=== PATIENT | male | born 1950 | race Caucasian/White ===

== ENCOUNTER → 2019-02-15 | Outpatient (CLI) | payer MEDICARE ==
[~2019-02-15] MED LIST: ASPI325 PO; Aldactone25 MG PO; Bactrim Ds Tab1 EACH PO; CARV25 PO; CLIN300 PO; CLOP75 PO; Cipro500 MG PO; Crestor40 MG PO; FURO100EL PO; HYDR1TAB94 PO; ISOMON60ER PO; LISI20 PO; LISI5 PO; METO50 PO; NAPR220 PO; NIFE30ER PO; NITR.4SL SL; Nicoderm Cq1 EAC1 TOP; ONE DAILY MEN'1 EAC1 PO; POTA10T PO; PRAV20 PO; Vsl#3 Capsule1 EACH PO; Zantac150 MG PO
== END ==
LOC: LAB SHORT 10:08 → LAB 10:08
DX: L03.032 Cellulitis of left toe (principal)
CPT/HCPCS: 87070; 87075; 87106; 87205

== ENCOUNTER 2019-03-12 07:30 | Day surgery (SDC) | payer MEDICARE ==
[~2019-03-12 07:30] MED LIST changes: -Aldactone25 MG PO; -Bactrim Ds Tab1 EACH PO; -CARV25 PO; -CLIN300 PO; -CLOP75 PO; -Crestor40 MG PO; -HYDR1TAB94 PO; -LISI5 PO; -NITR.4SL SL; -Nicoderm Cq1 EAC1 TOP; -ONE DAILY MEN'1 EAC1 PO; -Vsl#3 Capsule1 EACH PO
[2019-03-12] MEDS ORDERED: CLOP75 PO (18:39)
[2019-03-12] MEDS ORDERED: Aldactone25 MG PO (18:39)
[2019-03-12] MEDS ORDERED: Crestor40 MG PO (18:40)
[2019-03-12] MEDS ORDERED: LISI20 PO (18:41)
[2019-03-12] MEDS ORDERED: CARV25 PO (18:41)
[2019-03-12] MEDS ORDERED: NITR.4SL SL (18:42)
[2019-03-12] MEDS ORDERED: ONE DAILY MEN'1 EAC1 PO (18:42)
[2019-03-12] MEDS ORDERED: CLIN300 PO (18:42)
== END 2019-03-12 22:46 | disposition home or self-care (01) ==
LOC: WOUND 07:30
DX: S91.205A Unspecified open wound of left lesser toe(s) with damage to nail, initial encounter (principal); L03.032 Cellulitis of left toe; I73.9 Peripheral vascular disease, unspecified; F17.210 Nicotine dependence, cigarettes, uncomplicated; I48.0 Paroxysmal atrial fibrillation; E78.5 Hyperlipidemia, unspecified; J44.9 Chronic obstructive pulmonary disease, unspecified; Z95.0 Presence of cardiac pacemaker
CPT/HCPCS: G0463

== ENCOUNTER 2019-03-12 15:18 | Inpatient (IN) | payer MEDICARE ==
[~2019-03-12] VITALS: Ht 175.3 cm; Wt 84.0 kg
[2019-03-12 17:09] LABS: BASOPHILS ABSOLUTE AUTO 0.06 K/mm3 (0.00-0.23); BASOPHILS PERCENT AUTO 1 % (0-2); EOSINOPHILS ABSOLUTE AUTO 0.28 K/mm3 (0.00-0.68); EOSINOPHILS PERCENT AUTO 2 % (0-6); Hemoglobin 13.1 g/dL (13.5-17.5); IMMATURE GRAN PERCENT AUTO 1 % (0-1); LYMPHOCYTES ABSOLUTE AUTO 3.07 K/mm3 (0.84-5.20); LYMPHOCYTES PERCENT AUTO 24 % (21-46); MONOCYTES ABSOLUTE AUTO 1.37 K/mm3 (0.16-1.47); MONOCYTES PERCENT AUTO 11 % (4-13); Mean Corpuscular HGB Conc 33.6 g/dL (31.5-36.5); Mean Corpuscular Volume 89 fL (80-100); Mean Platelet Volume 8.8 fL (9.1-12.4); NEUTROPHILS ABSOLUTE AUTO 8.04 K/mm3 (1.96-9.15); NEUTROPHILS PERCENT AUTO 62 % (41-73); Platelet Count 309 K/mm3 (150-400); RDW Coefficient Variation 13.5 % (11.7-14.2); RDW Standard Deviation 44.2 fL (35.1-46.3); Red Blood Cell Count 4.37 M/mm3 (4.30-5.90); White Blood Cell Count 12.92 K/mm3 (4.00-11.30)
[2019-03-12 17:54] LABS: Albumin, Blood 3.8 g/dL (3.4-5.0); Bilirubin, Total 0.5 mg/dL (0.1-1.0); Bun/Creatinine Ratio 22.7 (12.0-20.0); Creatinine, Blood 1.41 mg/dL (0.60-1.20); Globulin, Blood 3.7 g/dL (2.2-4.0); Potassium, Blood 5.8 mmol/L (3.5-5.5); Total Protein, Blood 7.5 g/dL (6.4-8.2)
--- NOTE | 2019-03-12 18:00 | NUR ---
PT TO PCU 3 DIRECT ADMIT. TRANSFERED FROM WHEELCHAIR TO BED INDEPENDENTLY. C/O "05/28" LEFT FOOT PAIN. CURRENTLY NO ORDERS FOR PAIN MEDS. DR. GODFREY CALLED, ORDERS RECEIVED FOR PAIN MEDS. IV IN RIGHT HAND. JANICE NOTED TO LEFT FOOT, JANICE CDI.
[2019-03-12] MEDS ORDERED: CLOP75 PO (18:39)
[2019-03-12] MEDS ORDERED: Aldactone25 MG PO (18:39)
[2019-03-12] MEDS ORDERED: Crestor40 MG PO (18:40)
[2019-03-12] MEDS ORDERED: LISI20 PO (18:41)
[2019-03-12] MEDS ORDERED: CARV25 PO (18:41)
[2019-03-12] MEDS ORDERED: NITR.4SL SL (18:42)
[2019-03-12] MEDS ORDERED: ONE DAILY MEN'1 EAC1 PO (18:42)
[2019-03-12] MEDS ORDERED: CLIN300 PO (18:42)
--- NOTE | 2019-03-12 19:15 | NUR ---
SHIFT SUMMARY 1800 PT ARRIVED DIRECT ADMIT. ALERT AND ORIENTED X3. C/O "12/10" PAIN TO LEFT FOOT, MEDICATED WITH PRN PAIN MEDS. LUNG SOUNDS CLEAR, DIMINISHED BASES. NSR RATE 60s ON TELEMETRY. LEFT FOOT DRSG CDI. WEAKNESS TO BILATERAL FEET WITH LIMITED ROM. WILL CONTINUE TO MONITOR AND REPORT OFF TO SUPERVISOR RN.
--- NOTE | 2019-03-12 22:10 | NUR ---
ASSUMED CARE OF PATIENT AT [facility] 1909 DEBORAH Bales RN. PATIENT ALERT AND ORIENTED X4. PATIENT USES WALKER AT BASELINE; REPORTS FREQUENT FALLS AT HOME. PATIENT REPORTS FALLING ABOUT SIX WEEKS AGO; "BLISTER" LIKE SORE APPEARS ON FOOT "THEN GANGRENE". DRESSING REMOVED, PHOTOS TAKEN AND DRESSING APPLIED TO LEFT FOOT. PATIENT REPORTS PAIN 7/10 IN LEFT FOOT; AFTER GIVEN PO PAIN MEDICATION PATIENT REPORTS PAIN IS TOLERABLE. 911 EMERGENCY SERVICES DISPATCHER JENISE IN TO SEE PATIENT TWICE SINCE SHIFT CHANGE; NICOTINE PATCH, HOME MED AND FLUIDS ORDERED. SB/NSR ON TELE; OXYEN SATURATION ABOVE 90% ON ROOM AIR. PIV S/L. PATIENT CURRENTLY RESTING IN BED; CALL LIGHT IN REACH; BED IN LOWEST POSISTION; WILL CONTINUE TO MONITOR AND ASSESS UNTIL END OF SHIFT.
[2019-03-12 22:50] LABS: Bun/Creatinine Ratio 22.4 (12.0-20.0); Calcium, Blood 8.9 mg/dL (8.5-10.1); Creatinine, Blood 1.47 mg/dL (0.60-1.20)
[2019-03-13 04:16] LABS: BASOPHILS ABSOLUTE AUTO 0.04 K/mm3 (0.00-0.23); BASOPHILS PERCENT AUTO 0 % (0-2); EOSINOPHILS ABSOLUTE AUTO 0.33 K/mm3 (0.00-0.68); EOSINOPHILS PERCENT AUTO 4 % (0-6); Hematocrit 36.6 % (37.0-53.0); IMMATURE GRAN ABSOLUTE AUTO 0.06 K/mm3 (0.00-0.10); IMMATURE GRAN PERCENT AUTO 1 % (0-1); LYMPHOCYTES ABSOLUTE AUTO 3.19 K/mm3 (0.84-5.20); LYMPHOCYTES PERCENT AUTO 34 % (21-46); MONOCYTES ABSOLUTE AUTO 1.23 K/mm3 (0.16-1.47); MONOCYTES PERCENT AUTO 13 % (4-13); Mean Corpuscular HGB 29.7 pg (26.0-34.0); Mean Corpuscular HGB Conc 32.8 g/dL (31.5-36.5); Mean Corpuscular Volume 91 fL (80-100); Mean Platelet Volume 9.1 fL (9.1-12.4); NEUTROPHILS ABSOLUTE AUTO 4.54 K/mm3 (1.96-9.15); NEUTROPHILS PERCENT AUTO 48 % (41-73); Platelet Count 289 K/mm3 (150-400); RDW Coefficient Variation 13.6 % (11.7-14.2); Red Blood Cell Count 4.04 M/mm3 (4.30-5.90); White Blood Cell Count 9.39 K/mm3 (4.00-11.30)
[2019-03-13 04:31] LABS: Bun/Creatinine Ratio 22.5 (12.0-20.0); Calcium, Blood 8.8 mg/dL (8.5-10.1); Creatinine, Blood 1.42 mg/dL (0.60-1.20); Potassium, Blood 5.1 mmol/L (3.5-5.5)
--- NOTE | 2019-03-13 05:37 | NUR ---
ASSUMED CARE APPROXIMATELY 2129; PT A&O x4; PT PLEASANT AND COOPERATIVE W/ CARE; C/O SEVERE PAIN IN L FOOT; WOUND ON L SMALL TOE, SOLE AND HEEL OF FOOT DISCOLORED; PICTURES TAKEN REFER TO CHART; WOUND DRESSED W/ NON-ADHERENT PAD AND GAUZE BANDAGE ROLL; L LEG ELEVATED ON PILLOW AND PT MEDICATED PER ORDERS; PT ON RA AND O2 SATS >90; PT USES WALKER BASELINE; BED IN LOWEST POSITION; CALL LIGHT W/IN REACH; WILL CONTINUE TO MONITOR AND ASSESS UNTIL HAND OFF TO DAY SHIFT RN.
--- NOTE | 2019-03-13 08:30 | NUR ---
AM NOTE. ASSUMED CARE OF PT APROX 0700, PT IS A&Ox4 AND SBA W/FWW IN THE ROOM. PT WAS ADMITTED FOR LEFT FOOT INFECTION AND POSSIBLE REVASCULARIZATION OF THE LEFT FOOT/LEG. PT HAS NO EDEMA NOTED ON ASSESSMENT, PT IS IN NSR IN THE 60'S-70'S. L/S CLEAR T/O DIM IN THE BASES PT IS ON RA WITH O2 SATS >93%. BT PRESENT AND NORMOACTIVE, ABD IS SOFT AND NONTENDER TO PALP. PICTURES OF THE PT'S WOUND ARE IN THE CHART, PT'S PAIN IS POORLY CONTROLLED BUT PT IS REFUSING IV PAIN MEDICATIONS, PT EDUCATED ON PAIN CONTROLL AND HEALING, PT STATED HIS UNDERSTANDING. WILL CONTINUE TO MONITOR.
--- NOTE | 2019-03-13 17:58 | NUR ---
SHIFT SUMMARY. NO ACUTE CHANGES NOTED THIS SHIFT. PT'S VS STABLE. PT DENIES ANY CHEST PAIN/PRESSURE, N/V OR SOB. PT'S PAIN HAS BEEN POORLY CONTROLLED T/O SHIFT. PT HAS BEEN VOIDING IND IN THE URINAL AT THE BEDSIDE. PT IS TO HAVE PROCEDURE WITH DR. GODFREY TOMORROW, UNKNOWN TIME. PT HAS NOT HAD BM THIS SHIFT. CALL LIGHT IN REACH, BED IS LOCKED AND LOW WILL CONTINUE TO MONITOR UNTIL REPORT IS GIVEN TO ONCOMING RN.
--- NOTE | 2019-03-13 19:28 | NUR ---
OPENING NOTE RECEIVED REPORT FROM YUKI GARCES AND ASSUMED PT CARE. PT IS RESTING IN BED, WATCHING TELEVISION. C/O TENDERNESS AT IV SITE TO R HAND WHEN FLUSHED, DENIES PAIN WITH NS RUNNING AT 100 ML/HR. WILL CONTINUE TO MONITOR AND WILL CONTINUE PLAN OF CARE.
[2019-03-13 21:26] LABS: Vancomycin, Trough 20.4 ug/mL (5.0-10.0)
--- NOTE | 2019-03-14 06:10 | NUR ---
SHIFT SUMMARY PT HAS BEEN RESTLESS THROUGH SHIFT, C/O PAIN RATED 5-10 TO LEFT FOOT AND OCCASSIONALLY BACK PAIN. MEDICATED PER PRN ORDERS (SEE EMAR) WITH GOOD EFFECT. NS RUNNING TO NEW IV PLACED IN THE LFA (20G). OVERALL STATUS: UNCHANGED R/T TO CONTINUED FOOT PAIN AND PLAN FOR POSSIBLE INTERVENTION TODAY. NEW CONSULT ORDER FOR ORTHO RECEIVED, CALLED TO ANS SERVICE, AND NOTED IN ORDER. WILL PROVIDE BEDSIDE REPORT TO ONCOMING RN.
--- NOTE | 2019-03-14 08:27 | NUR ---
AM NOTE. ASSUMED CARE OF PT APROX 0700, PT IS A&Ox4 AND SBA AT BASELINE, CURRENTLY PT HAS WOUND ON LEFT FOOT THAT HE WAS ADMITTED FOR. PT IS TO HAVE A PROCEDURE WITH DR. GODFREY TODAY. PT IS TO HAVE NM 3 PHASE BONE SCAN ON 03/15 AT 1000 AND 1300. PT'S PAIN CONTROL STILL AN ISSUE BUT PT STATES HE FEELS BETTER TODAY. L/S CLEAR AND DIM IN THE BASES, PT IS ON RA WITH O2 SATS >92%. BT PRESENT AND NORMOACITVE, ABD IS SOFT AND NONTENDER TO PALP. CALL LIGHT IN REACH, WILL CONTINUE TO MONITOR.
--- NOTE | 2019-03-14 17:39 | NUR ---
PT BACK FROM JOB FORWARDER PT RETURNED FROM JOB FORWARDER AT 1730. PT IS SLEEPING BUT ROUSABLE. PT'S VS STABLE AT 116/71, HR 81, RR18, TEMP 96.7. O2 SAT AT 95% ON RA. PT HAS RIGHT GROIN ACCESS WITH ANGIO SEAL. SITE IS C/D/I, NO BLEEDING, SWELLING, OR HEMATOMA NOTED. PT'S LEFT LEG AND FOOT ARE PINK/RED AND WARM WITH GOOD PEDIAL PULSE. WILL CONTINUE TO MONITOR.
--- NOTE | 2019-03-14 17:42 | NUR ---
SHIFT SUMMARY. NO ACUTE NEGATIVE CHANGES NOTED THIS SHIFT. PT'S VS HAVE BEEN STABLE. PT HAD REVASCULARIZATION PROCEDURE AND HAS RETURNED TO THE ROOM. PT IS TO BE NPO AFTER MIDNNIGHT FOR SURGERY IN THE AM TO REMOVE THE 2 INFECTED TOES ON THE LEFT FOOT. PT DENNIES ANY CHEST PAIN/PRESSURE, N/V OR SOB AT THIS TIME. NO EVENTS NOTED ON TELE. WILL CONTINUE TO MONITOR UNTIL REPORT IS GIVEN TO ONCOMING RN.
--- NOTE | 2019-03-14 19:28 | NUR ---
PT UPDATE... PT IS TO HAVE SURGERY TOMORROW TO REMOVED THE TWO INFECTED TOES ON THE LEFT FOOT. THE BONE SCAN IS CANCLED D/T NOT NEEDING THE SCAN ANYMORE.
--- NOTE | 2019-03-14 19:45 | NUR ---
Pt lethartic upon initial assessment. Able to open eyes to command. Oriented only to person and , when asked for him to tell this RN where he is, pt states "i don't know". Pt breathing easy and unlabored. VSS. R femoral site assessed with offgoing day RN. No changes noted from day shift. Site soft, nontender, no drainage noted. angioseal wnl. At approx 1945 pt set off bed alarm and when this RN came to room, pt up in room ambulating. This RN promptly guided pt back to bed. R femoral site assessed. No changes noted. Pt educated on need to use call light. pt verbalized understanding. Zone alarms for the bed alarm placed on pt bed. See shift assessment for detailed assessment.
[2019-03-14 21:42] LABS: Vancomycin, Trough 16.4 ug/mL (5.0-10.0)
--- NOTE | 2019-03-15 01:30 | NUR ---
UPDATE By midnight, pt now alert and oriented, calling appropriately with call light. Pt no longer attempting to exit bed unattended. R femoral site remains wnl. No changes noted. VSS.
[2019-03-15 04:22] LABS: BASOPHILS ABSOLUTE AUTO 0.04 K/mm3 (0.00-0.23); BASOPHILS PERCENT AUTO 1 % (0-2); EOSINOPHILS ABSOLUTE AUTO 0.14 K/mm3 (0.00-0.68); EOSINOPHILS PERCENT AUTO 2 % (0-6); Hematocrit 34.2 % (37.0-53.0); Hemoglobin 11.2 g/dL (13.5-17.5); IMMATURE GRAN ABSOLUTE AUTO 0.04 K/mm3 (0.00-0.10); IMMATURE GRAN PERCENT AUTO 1 % (0-1); LYMPHOCYTES ABSOLUTE AUTO 1.76 K/mm3 (0.84-5.20); LYMPHOCYTES PERCENT AUTO 20 % (21-46); MONOCYTES ABSOLUTE AUTO 0.93 K/mm3 (0.16-1.47); MONOCYTES PERCENT AUTO 11 % (4-13); Mean Corpuscular HGB 29.4 pg (26.0-34.0); Mean Corpuscular HGB Conc 32.7 g/dL (31.5-36.5); Mean Corpuscular Volume 90 fL (80-100); Mean Platelet Volume 9.2 fL (9.1-12.4); NEUTROPHILS ABSOLUTE AUTO 5.78 K/mm3 (1.96-9.15); NEUTROPHILS PERCENT AUTO 66 % (41-73); Platelet Count 256 K/mm3 (150-400); RDW Standard Deviation 46.1 fL (35.1-46.3); Red Blood Cell Count 3.81 M/mm3 (4.30-5.90); White Blood Cell Count 8.69 K/mm3 (4.00-11.30)
[2019-03-15 04:44] LABS: Anion Gap 9 mmol/L (6-16); Blood Urea Nitrogen 19 mg/dL (8-24); Bun/Creatinine Ratio 19.1 (12.0-20.0); CO2, Blood 21 mmol/L (21-32); Calcium, Blood 8.3 mg/dL (8.5-10.1); Chloride, Blood 108 mmol/L (98-108); Creatinine, Blood 0.99 mg/dL (0.60-1.20); Glomerular Filtration Rate >60 (60-); Glucose, Blood 79 mg/dL (70-99); Potassium, Blood 5.1 mmol/L (3.5-5.5); Sodium, Blood 138 mmol/L (136-145)
--- NOTE | 2019-03-15 04:54 | NUR ---
Shift Summary VSS this shift. Disorientation from begining of shift cleared around midnight as documented in previous nurse notes. Pt currently alert and oriented, conversing appropriately with staff, using call light appropriately to make needs known. No acute declines noted this shift. No negative changes from initial shift assessment. Upon initial assessment, pt on 1.5L NC, currently maintaining o2 >95% on RA, breathing easy and unlabored. Pt denies SOB or WALKER. Pt denies chest pain or pressure. Pt does c/o severe BLE pain, particularly LLE. Medicated per emar. Repositioned and warm blanket provided for comfort. Pt currently sleeping and arrousable. R groin site unchanged from initial assessment, site wnl, non tender, angioseal CDI. Pt able to move all extremities independantly. MRI screening list completed with pt once initial lethargy cleared and pt exhibited proper orientation. MRI screening faxed to imaging. Pt voiding with urinal, flat time completed and pt has stood in room with no changes noted to groin site. Will continue to monitor and provide care per orders until day RN assumes care.
--- NOTE | 2019-03-15 07:27 | NUR ---
AM NOTE. ASSUMED CARE OF PT APROX 0700. PT IS A&Ox4. PT IS NPO FOR SURGERY TODAY FOR I&D AND POSSIBLE AMPUTATION OF LEFT TOES. PT'S RIGHT GROIN SITE IS C/D/I, NO SWELLING OR HEMATOMA NOTED. PT'S LEFT LEG IS PINK AND WARM AND SLIGHTLY PUFFY , PEDAL PULSE IS FAINT. PT'S RIGHT LEG IS PALE AND COOL TO TOUCH WITH VERY FAINT PEDAL PULSE. PT IS IN NSR IN THE 60'S-70'S. NO OTHER EDEMA NOTED. PT IS ON RA, L/S CLEAR T/O DIM IN THE BASES. BT PRESENT AND HYPOACTIVE, ABD IS SOFT AND NONTENDER TO PALP. VS STABLE. WILL CONTINUE TO MONITOR.
--- NOTE | 2019-03-15 09:03 | NUR ---
PT UPDATE... PT RETURNED FROM CT SCAN, PT REPORTING RADIATING CHEST PAIN FROM HIS STERNAL AREA TO HIS BACK. PT STATES THAT HE FEELS LIKE THIS IS "ANOTHER HEART ATTACK." PT IS ALSO C/O OF NAUSEA AND IS DIAPHORETIC. PROVIDER CALLED, EKG OBTAINED AND NITRO SL WAS GIVEN. PER PT CP WAS 10/10, AFTER FIRST NITRO PT STATES CP IS ALMOST GONE.
--- NOTE | 2019-03-15 17:35 | NUR ---
SHIFT SUMMARY. NO ACUTE CHANGES NOTED THIS SHIFT. PT WAS NPO AFTER MIDNIGHT FOR SURGERY TODAY, HOWEVER DUE TO THE PT'S EPISODE OF CHEST PAIN THE SURGERY WAS CANCLED. IT IS NOT KNOWN WHEN HE WILL GO TO THE OR AT THIS TIME. PT'S PAIN HAS BEEN BETTER CONTROLLED TODAY. PT DENIES ANY CHEST PAIN AFTER THE ONE DOSE OF NITRO THIS AM. PT'S VS HAVE BEEN STABLE ALL SHIFT. CALL LIGHT IN REACH, BED IS LOCKED AND LOW WILL CONITNUE TO MONITOR UNTIL REPORT IS GIVEN TO ONCOMING RN.
--- NOTE | 2019-03-15 21:30 | NUR ---
PT presents sitting in bed, eyes open. VSS, pt alert and oriented, conversing appropriately with staff. Pt answers all questions appropriately, pleasant and cooperative with staff. Breathing is easy and unlabored at rest. o2 saturations maintained >95% on RA. Pt expressing concerns and frustrations to this RN regarding surgery delay and pt expresses "I just wanted a doctor to come and tell me what is going on". This RN expressed sympathy to pt. Pt denying need for pain medication at this time, will continue to monitor pain and medicated per emar. See shift assessment for detailed systems assessment.
[2019-03-16 01:31] LABS: BASOPHILS ABSOLUTE AUTO 0.03 K/mm3 (0.00-0.23); BASOPHILS PERCENT AUTO 0 % (0-2); EOSINOPHILS ABSOLUTE AUTO 0.24 K/mm3 (0.00-0.68); EOSINOPHILS PERCENT AUTO 3 % (0-6); Hematocrit 32.3 % (37.0-53.0); Hemoglobin 10.4 g/dL (13.5-17.5); IMMATURE GRAN ABSOLUTE AUTO 0.03 K/mm3 (0.00-0.10); IMMATURE GRAN PERCENT AUTO 0 % (0-1); LYMPHOCYTES ABSOLUTE AUTO 1.78 K/mm3 (0.84-5.20); LYMPHOCYTES PERCENT AUTO 23 % (21-46); MONOCYTES ABSOLUTE AUTO 1.06 K/mm3 (0.16-1.47); MONOCYTES PERCENT AUTO 14 % (4-13); Mean Corpuscular HGB 29.3 pg (26.0-34.0); Mean Corpuscular HGB Conc 32.2 g/dL (31.5-36.5); Mean Corpuscular Volume 91 fL (80-100); Mean Platelet Volume 8.9 fL (9.1-12.4); NEUTROPHILS ABSOLUTE AUTO 4.54 K/mm3 (1.96-9.15); NEUTROPHILS PERCENT AUTO 59 % (41-73); Platelet Count 242 K/mm3 (150-400); RDW Standard Deviation 47.2 fL (35.1-46.3); Red Blood Cell Count 3.55 M/mm3 (4.30-5.90); White Blood Cell Count 7.68 K/mm3 (4.00-11.30)
[2019-03-16 01:45] LABS: Anion Gap 4 mmol/L (6-16); Blood Urea Nitrogen 19 mg/dL (8-24); Bun/Creatinine Ratio 19.9 (12.0-20.0); CO2, Blood 26 mmol/L (21-32); Calcium, Blood 8.3 mg/dL (8.5-10.1); Chloride, Blood 110 mmol/L (98-108); Creatinine, Blood 0.96 mg/dL (0.60-1.20); Glomerular Filtration Rate >60 (60-); Glucose, Blood 97 mg/dL (70-99); Potassium, Blood 4.7 mmol/L (3.5-5.5); Sodium, Blood 140 mmol/L (136-145)
--- NOTE | 2019-03-16 05:44 | NUR ---
Shift Summary Pt with no acute changes this shift. No acute concerns to note. Pain managed with [place] per emar x2 this shift, pt able to sleep and experienced relief with ordered dose and frequency. VSS. No events on tele. EKG completed per orders. Pt denies chest pain or pressure this shift, no nitro given this shift. Pt conversing appropriately, uses call light to make needs known, remains alert and oriented. No declines or changes to note from initial shift assessment. Pt has been NPO since midnight incase surgery is completed today (was cancelled yesterday d/t pt report of 10/10 sx chest pain). Pt voids in urinal at bedside independantly. Will continue to monitor and provide care per orders until report off to day rn.
[2019-03-16 10:16] LABS: Vancomycin, Trough 13.7 ug/mL (5.0-10.0)
--- NOTE | 2019-03-16 17:12 | NUR ---
SHIFT NOTE PT ALERT, CONVERSIVE T/O SHIFT. PT DID COMPLAIN OF PAIN ONCE TODAY, WHICH WAS REOLVED WITH NORCO PT STS THAT NORCO WORKS BETTER FOR HIS PAIN, PT TOLERATED PAIN MEDICATION WELL AND SLEPT FOR APPROX 2 HOURS POST ADMIN. PT MARYNER WAS IN TO SEE PT, PT'S STATUS WAS CHANGED TO SURG WITH TELE. POSSIBLE SURGICAL DEBRIDING OF LT FOOT ON MONDAY. PUNTURE WOUND FROM REVASCULARIZATION REMAINS SOFT, WNL, NO DRAINAGE, OPSITE REMAINS IN PLACE. VSS T/O SHIFT. NO DRAINAGE NOTED FROM WOUND TO LT TOES, PEDAL PULSES ARE FAINT IN LT FOOT, NO GROSS SWELLING NOTED BUT LT LEG IS MORE WARM THAN THE RIGHT. PT HAS BEEN CHANGED TO CARDIAC DIET, PT EATING AND TAKING IN FLUIDS WELL
--- NOTE | 2019-03-17 03:56 | NUR ---
PT CONVERTS TO ATRIAL FIBRILATION WITH RVR 0156: pt converts from NSR to afib at 135. This RN was notified by survey field technician and immediately went to pt room. Pt with labored breathing, appears in mild distress. pt reports complaints of SOB and chest pressure. Vitals taken and documented. MD Vidales notified of rhythm change and symptoms. EKG ordered and obtained per orders, 20mg IV dilt x1 ordered and given per emar with no effect, dilt gtt ordered (if IV push does not have effect, per MD vidales). additional IV placed by this RN to LW. Pt infusing dilt gtt at 10 mg/hr into LW IV. Pt complaint of nausea, MD Vidales called and notifed, again, orders for zofran obtained and given. Nausea resolved. BP stable on gtt at this time. Pt remains in Afib with rates in 110's per survey field technician. Pt states cardiac symptoms have resolved but complains of 10/10 leg and back pain consistant with chronic pain sx. This pt was then medicated for pain per emar. Will continue to monitor and provide care.
--- NOTE | 2019-03-17 04:40 | NUR ---
HR trending in 90's low 100's for 10 minutes. Pt remains Afib. Cardizem Gtt changed to 5mg/hr.
--- NOTE | 2019-03-17 05:11 | NUR ---
PT CONVERTED TO NSR AT 0454. cardizem gtt turned off and placd on standby at this time. Pt denies cardiac sx; no chest pain or pressure, denies SOB; RW SL at this time.
--- NOTE | 2019-03-17 06:35 | NUR ---
SHIFT SUMMARY Pt remains grossly stable this shift. Cardiac event as documented. Afib has since resolved, cardizem gtt off and currently not infusing. Pt with VSS, no changes to neuro status, remains alert and oriented. Pt continues to use call light to make needs known. C/o BLE pain this shift, medicated per emar and pain medication regiment is effective per pt report. Besides cardiac event, no changes from initial shift assessment. Will provide care and monitor until hand off to day RN.
--- NOTE | 2019-03-17 09:34 | NUR ---
PT ABLE TO HAVE BM
--- NOTE | 2019-03-17 10:13 | NUR ---
PT HAD BRIEF EPISODE OF AFIB THAT RANGED FROM 110s TO 138 POST AMBULATION TO BATHROOM, PT DID AMBULATE WITHOUT ADDITIONAL ASSISTANCE, BUT PT DID APPEAR TIRED AFTER AMBULATION. EPISODE OF AFIB RESOLVED WITHIN 10 MINUTES WITHOUT INTERVENTION, PT DENIES CP DURING EVENT. DR TRISTAN IS UPDATED, NEW ORDERS ARE PLACED, NS IS STOPPED AT TIME PER ORDER OF DR TRISTAN
--- NOTE | 2019-03-17 18:23 | NUR ---
SHIFT NOTE PT HAD EPISODE OF A-FIB THAT RANGED FROM 110-140 EARLIER TODAY POST AMBULATION, AFIB RESOLVED WITHOUT INTERVENTION AFTER APPROX [address] TRISTAN WAS CONSULTED, ORDERS OBTAINED TO STOP NS INFUSIION, AND GIVE MAGNESIUM AND LASIX WHICH WAS ADMINISTERED AND TOLERATED WELL. PT HAD ANOTHER EPISODE OF AFIB THAT RANGED WITHIN 90-110 AT THE END OF SHIFT, PT REMAINS A-SYMPTOMATIC AT THIS TIME, WILL CONTINUE TO MONITOR. PT OTHERWISE HAS C/O PAIN X2 TODAY WHICH WAS MANAGED WITH NORCO ADMINISTRATION. VSS T/O SHIFT WITH EXPECTION OF THE TWO EPISODES OF AFIB. ANTICIPATING PT GOING TO OR TOMORROW FOR DEBRIDING OF LT FOOT WOUND. PT ACUTE CHANGE TO FOOT WOUND, HAS REMAINED UNDRESSED, NO DRAINAGE OR ODOR NOTED
--- NOTE | 2019-03-17 23:12 | NUR ---
Pt converted from NSR to Afib at approx 2237 rates between 120-140; while in room with pt at approx 2250, pt complaint of "flutters" in his chest. Tele shows 5 beats of VTACH. Provider William called and notified of events. Lopressor 5mg IV x1 ordered if SBP>110. Pt with VSS. at approx 2310, pt convered back to NSR without medication administration. Medication held and not given per clinical judgement as pt is no longer in AFIB. will continue to monitor and provide care per orders.
--- NOTE | 2019-03-18 00:35 | NUR ---
UPDATE Pt continues to flip in and out of afib this shift. Also, pain has not been managed well. Pt appears painful at rest regardless of medication administration. Pt states "i think i'm just tired and can't tolerate my pain as well tonight". Pt denies need for alternative pain medication. Pt declines alternative pain management options. Will continue to monitor.
--- NOTE | 2019-03-18 01:20 | NUR ---
Pt NPO on 03/17/19 at 2358; plan is for operation of L toe wound on 03/18/19. 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
--- NOTE | 2019-03-18 05:20 | NUR ---
Shift Summary Pt with no acute declines to note overnight. Pt continues to have Afib on and off. Currently pt is in afib at 113, resting in bed with eyes open. Pain has been a continual complaint this shift. Medicated per orders with little relief. Will pass this change on to day RN. Pt with VSS, no changes to mentation, remains on RA and denies SOB. Uses urinal at bedside for voids independantly. ABX infused per orders. Pt NPO at this time in preparation for operation today. Will continue to montior .
--- NOTE | 2019-03-18 13:45 | NUR ---
PT TO DAY SURGERY WITH BRITNI GARCES
--- NOTE | 2019-03-18 16:02 | NUR ---
History, Chart, Medications and Allergies reviewed before start of procedure. Patient confirms NPO status and agrees with scheduled surgery.
--- NOTE | 2019-03-18 18:09 | NUR ---
SHIFT NOTE PT POOR MODERATELY CONTROLLED PAIN T/O DAY TO LT FOOT, PT TREATED WITH NORCO THIS AM THAT DID NOT HAVE A GREAT IMPACT ON PAIN, PT WAS ALSO TREATED WITH 100MG FENTANYL IVP PRIOR TO LEAVING WITH DAY SURGERY TODAY AROUND 1545. 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 PER SOFÍA PT HAS BEEN ANXIOUS AND COMPLAINING OF 10/10 BURNING PAIN TO LT FOOT WHILE IN RECOVERY THAT HAS NOT BEEN ABLE TO BE MANAGED WITH REPEATED DOSES OF FENTANYL WHILE IN PACU. T/O DAY PT DID HAVE 2 EPISODES OF AFIB THAT RANGED FROM 90s-110s, DENIES CP OR SOB T/O THE DAY. PT AMBULATED TO BATHROOM FOR BM WITH SLOW STEADY GAIT WITH HIS WALKER TO HAVE A BM. NO ACUTE CHANGES IN WOUND TO LT FOOT PRIOR TO LEAVING FOR OR TODAY.
--- NOTE | 2019-03-18 18:09 | NUR ---
RECIEVED REPORT FROM SOFÍA GARCES IN PACU, PT WILL RETURN SHORTLY FROM PACU
[2019-03-19 04:13] LABS: BASOPHILS ABSOLUTE AUTO 0.01 K/mm3 (0.00-0.23); BASOPHILS PERCENT AUTO 0 % (0-2); EOSINOPHILS PERCENT AUTO 0 % (0-6); Hematocrit 32.6 % (37.0-53.0); Hemoglobin 10.8 g/dL (13.5-17.5); IMMATURE GRAN ABSOLUTE AUTO 0.04 K/mm3 (0.00-0.10); IMMATURE GRAN PERCENT AUTO 1 % (0-1); LYMPHOCYTES ABSOLUTE AUTO 0.97 K/mm3 (0.84-5.20); LYMPHOCYTES PERCENT AUTO 14 % (21-46); MONOCYTES ABSOLUTE AUTO 0.28 K/mm3 (0.16-1.47); MONOCYTES PERCENT AUTO 4 % (4-13); Mean Corpuscular HGB 29.3 pg (26.0-34.0); Mean Corpuscular HGB Conc 33.1 g/dL (31.5-36.5); Mean Corpuscular Volume 89 fL (80-100); Mean Platelet Volume 9.4 fL (9.1-12.4); NEUTROPHILS ABSOLUTE AUTO 5.48 K/mm3 (1.96-9.15); NEUTROPHILS PERCENT AUTO 81 % (41-73); Platelet Count 308 K/mm3 (150-400); RDW Standard Deviation 45.6 fL (35.1-46.3); Red Blood Cell Count 3.68 M/mm3 (4.30-5.90); White Blood Cell Count 6.78 K/mm3 (4.00-11.30)
[2019-03-19 04:32] LABS: Anion Gap 6 mmol/L (6-16); Blood Urea Nitrogen 16 mg/dL (8-24); Bun/Creatinine Ratio 19.3 (12.0-20.0); CO2, Blood 26 mmol/L (21-32); Calcium, Blood 8.2 mg/dL (8.5-10.1); Chloride, Blood 106 mmol/L (98-108); Creatinine, Blood 0.83 mg/dL (0.60-1.20); Glomerular Filtration Rate >60 (60-); Glucose, Blood 183 mg/dL (70-99); Magnesium, Blood 1.6 mg/dL (1.6-2.4); Potassium, Blood 3.9 mmol/L (3.5-5.5); Sodium, Blood 138 mmol/L (136-145)
--- NOTE | 2019-03-19 06:43 | NUR ---
ASSUMED CARE APPROXIMATELY 1900; PT A&O X4; PT C/O UNCONTROLLED PAIN AFTER SURGERY; PT GIVEN 50MCG FENTANYL @ 2141; PT STATED HE COULD FEEL IT STARTING TO WORK; EXPRESSED CONCERNS OF IT WEARING OFF TOO QUICKLY; NORCO GIVEN PER EMAR AT 6; NORCO ADMINISTER AGAIN @ 0238; PT EDUCATED ON NEED TO STAY UNDER 4 G OF [place] IN 24HRS; PT EXPRESSED UNDERSTANDING; PT STATED NORCO WORKED LONGER AND DECLINED FENTANYL; PT CONVERSING EASILY W/ THIS NURSE AND SMILING; PT USES URINAL IN BED; URINE DARK IN COLOR; PT ENCOURAGED TO DRINK FLUIDS TODAY; PT APPROPRIATE W/ CALLS; PT AT EASE TO KNOW TIME FRAME OF NEXT PAIN MEDICATION AND PERAMETERS; CALL LIGHT IN REACH; BED IN LOWEST POSITION; WILL CONTINUE TO MONITOR AND ASSESS UNTIL HAND OFF TO DAY SHIFT RN.
--- NOTE | 2019-03-19 19:56 | NUR ---
REPORT GIVEN TO MACHO RN. PT STATES "MUCH BETTER" PAIN CONTROL WITH 1 NORCO EVERY 3 HOURS. VSS. STILL WITH EPISODES OF AFIB WITH EXERTION WHICH HAS BEEN PT'S NORM SINCE ADMISSION, METOPROLOL PO STARTED TODAY. PT NOW MED/SURG, NO TELE STATUS, MONITORED PT ON TELE SINCE STARTING METOPROLOL, NO CHANGES OR NEW EVENTS 6 HOURS POST ADMINISTRATION SO TELE DC'D. DR BYERS IN TO SEE PT THIS AFTERNOON, STATES FOOT "LOOKS GREAT", WILL DC DRAIN TOMORROW AND EXPECTS THAT PT COULD DC HOME FROM HIS STAND POINT. PT ALSO SWITCHED TO ALL PO MEDS AND DR CLARKE STATED OK TO DC IV. NO OTHER ACUTE CHANGES THIS SHIFT.
--- NOTE | 2019-03-19 19:59 | NUR ---
PT RESTING COMFORTABLY WITH LEFT FOOT CHAVA WRAP DRESSING DRY AND INTACT WITH SITE ELEVATED ON TWO PILLOWS
--- NOTE | 2019-03-19 23:37 | NUR ---
PT RESTING COMFORTABLY, VOIDING CLEAR YELLOW FLUID VIA URINAL, VITAL SIGNS STABLE.
--- NOTE | 2019-03-20 04:09 | NUR ---
SHIFT SUMMARY: 68 Y/O MALE RESTED COMFORTABLY ALL SHIFT, OCCASIONALY C/O LEFT FOOT ACHE RATED 6/10 WITH NORCO 5/325MG PO GIVEN WITH RELIEF FELT, LEFT FOOT CHAVA WRAP DRESSING DRY AND INTACT, EAGER FOR POSSIBLE DISCHARGE HOME TODAY, BED LOW POSITION WITH CALL LIGHT AT SIDE.
[2019-03-20] MEDS ORDERED: HYDR1TAB94 PO (12:28)
[2019-03-20] MEDS ORDERED: Vsl#3 Capsule1 EACH PO (12:29)
[2019-03-20] MEDS ORDERED: METO50 PO (12:30)
[2019-03-20] MEDS ORDERED: Nicoderm Cq1 EAC1 TOP (12:32)
[2019-03-20] MEDS ORDERED: Bactrim Ds Tab1 EACH PO (12:33)
[2019-03-20] MEDS ORDERED: LISI5 PO (12:34)
--- NOTE | 2019-03-20 13:38 | NUR ---
DISCHARGE PT IS EXCITED FOR D/C. DR BYERS IN FOR DRSG CHANGE PRIOR TO D/C. LATE NEW MED OF [place]ACE VERBALLY EXPLAINED TO PT WELL CALLED IN TO [facility]. CRAWLEY TO CALL PT'S CELL PHONE TO LEAVE MESSAGE. DRSG SUPPLIES SENT WITH PT.
== END 2019-03-20 13:59 | disposition home or self-care (01) | DRG 504 ==
LOC: ER 15:18 → PCU 15:19
PROVIDERS: Hospitalist; Internal Medicine; Nurse Practitioner Acute Care; Physician Assistant; ADMIT Radiology Diagnostic Radiology
PROC: 047H3DZ Dilation of Right External Iliac Artery with Intraluminal Device, Percutaneous Approach (ICD-10-PCS; principal; 2019-03-14)
PROC: 047L3DZ Dilation of Left Femoral Artery with Intraluminal Device, Percutaneous Approach (ICD-10-PCS; 2019-03-14)
PROC: 047L3Z1 Dilation of Left Femoral Artery using Drug-Coated Balloon, Percutaneous Approach (ICD-10-PCS; 2019-03-14)
PROC: B41D1ZZ Fluoroscopy of Aorta and Bilateral Lower Extremity Arteries using Low Osmolar Contrast (ICD-10-PCS; 2019-03-14)
PROC: 0Y6W0Z1 Detachment at Left 4th Toe, High, Open Approach (ICD-10-PCS; 2019-03-18)
PROC: 0Y6Y0Z1 Detachment at Left 5th Toe, High, Open Approach (ICD-10-PCS; 2019-03-18)
DX: M86.9 Osteomyelitis, unspecified (principal); N17.9 Acute kidney failure, unspecified; L03.116 Cellulitis of left lower limb; I50.22 Chronic systolic (congestive) heart failure; L97.524 Non-pressure chronic ulcer of other part of left foot with necrosis of bone; I25.10 Atherosclerotic heart disease of native coronary artery without angina pectoris; Z95.5 Presence of coronary angioplasty implant and graft; E78.5 Hyperlipidemia, unspecified; F17.210 Nicotine dependence, cigarettes, uncomplicated; I73.9 Peripheral vascular disease, unspecified; K21.9 Gastro-esophageal reflux disease without esophagitis; H54.62 Unqualified visual loss, left eye, normal vision right eye; N18.3 Chronic kidney disease, stage 3 (moderate); I12.9 Hypertensive chronic kidney disease with stage 1 through stage 4 chronic kidney disease, or unspecified chronic kidney disease; I48.0 Paroxysmal atrial fibrillation; Z79.82 Long term (current) use of aspirin; E78.00 Pure hypercholesterolemia, unspecified
CPT/HCPCS: 36415; 37221; 37227; 73620; 73701; 75625; 75716; 75774; 80048; 80053; 80202; 83605; 83735; 84484; 85025; 85347; 87040; 87070; 87075; 87106; 87205; 88305; 88311; 93005; 93010; 99152; 99153; A9270-GY; C1724; C1725; C1760; C1769; C1874; C1876; C1884; C1887; C1894; C2623; J0696; J1100; J1644; J1940; J2250; J2370; J2405; J2704; J3010; J3370; J3475; J7030; J7040; J7050; J7120; Q9967

== ENCOUNTER 2020-12-21 20:48 | Inpatient (IN) | payer MEDICARE ==
[~2020-12-21] VITALS: Ht 175.3 cm; Wt 86.2 kg
[~2020-12-21 20:48] MED LIST changes: -ASPI325 PO; +Aldactone25 MG PO; +Bactrim Ds Tab1 EACH PO; +CARV25 PO; +CLIN300 PO; +HYDR1TAB94 PO; +LISI5 PO; +NITR.4SL SL; +Nicoderm Cq1 EAC1 TOP; +ONE DAILY MEN'1 EAC1 PO; +Vsl#3 Capsule1 EACH PO
[2020-12-21] MEDS ORDERED: CLOP75 PO (21:17)
[2020-12-21] MEDS ORDERED: METO100ER PO (21:18)
[2020-12-21] MEDS ORDERED: Crestor40 MG PO (21:19)
[2020-12-21 21:20] LABS: Calcium, Ionized (POC) 1.17 mmol/L (1.10-1.46); Chloride (POC) 104 mmol/L (98-108); Creatinine (POC) 1.1 mg/dL (0.8-1.3); Glucose (ISTAT POC) 133 mg/dL (70-99); Hemoglobin (POC) 16.7 g/dL (13.5-17.5); Potassium (POC) 3.6 mmol/L (3.5-5.5); Sodium (POC) 141 mmol/L (135-148); Total CO2 (POC) 25 mmol/L (21-32)
[2020-12-21 21:26] LABS: BASOPHILS ABSOLUTE AUTO 0.04 K/mm3 (0.00-0.23); BASOPHILS PERCENT AUTO 0 % (0-2); EOSINOPHILS ABSOLUTE AUTO 0.13 K/mm3 (0.00-0.68); EOSINOPHILS PERCENT AUTO 2 % (0-6); Hemoglobin 15.3 g/dL (13.5-17.5); IMMATURE GRAN ABSOLUTE AUTO 0.03 K/mm3 (0.00-0.10); IMMATURE GRAN PERCENT AUTO 0 % (0-1); LYMPHOCYTES ABSOLUTE AUTO 3.43 K/mm3 (0.84-5.20); LYMPHOCYTES PERCENT AUTO 39 % (21-46); MONOCYTES ABSOLUTE AUTO 1.21 K/mm3 (0.16-1.47); MONOCYTES PERCENT AUTO 14 % (4-13); Mean Corpuscular HGB 26.1 pg (26.0-34.0); Mean Corpuscular HGB Conc 31.9 g/dL (31.5-36.5); Mean Corpuscular Volume 82 fL (80-100); Mean Platelet Volume 9.9 fL (9.1-12.4); NEUTROPHILS ABSOLUTE AUTO 4.07 K/mm3 (1.96-9.15); NEUTROPHILS PERCENT AUTO 46 % (41-73); Platelet Count 236 K/mm3 (150-400); RDW Coefficient Variation 18.4 % (11.7-14.2); RDW Standard Deviation 51.7 fL (35.1-46.3); Red Blood Cell Count 5.86 M/mm3 (4.30-5.90); White Blood Cell Count 8.91 K/mm3 (4.00-11.30)
[2020-12-21 21:48] LABS: Alanine Aminotransfer (ALT/SGP 20 U/L (12-78); Albumin, Blood 3.8 g/dL (3.4-5.0); Albumin/Globulin Ratio 1.1 (0.8-1.8); Alk Phos 75 U/L (50-136); Anion Gap 6 mmol/L (6-16); Aspartate Aminotrans (AST/SGOT 19 U/L (12-37); Bilirubin, Total 0.4 mg/dL (0.1-1.0); Blood Urea Nitrogen 19 mg/dL (8-24); Bun/Creatinine Ratio 17.6 (12.0-20.0); CO2, Blood 27 mmol/L (21-32); Calcium, Blood 9.5 mg/dL (8.5-10.1); Chloride, Blood 107 mmol/L (98-108); Creatinine, Blood 1.08 mg/dL (0.60-1.20); Globulin, Blood 3.4 g/dL (2.2-4.0); Glomerular Filtration Rate >60 (60-); Glucose, Blood 133 mg/dL (70-99); Potassium, Blood 3.8 mmol/L (3.5-5.5); Sodium, Blood 140 mmol/L (136-145); Total Protein, Blood 7.2 g/dL (6.4-8.2); Troponin I 0.066 ng/mL (0.000-0.040)
[2020-12-21] MEDS ORDERED: ASPI325EC PO (22:06)
[2020-12-22 04:15] LABS: BASOPHILS ABSOLUTE AUTO 0.03 K/mm3 (0.00-0.23); BASOPHILS PERCENT AUTO 0 % (0-2); EOSINOPHILS ABSOLUTE AUTO 0.15 K/mm3 (0.00-0.68); EOSINOPHILS PERCENT AUTO 2 % (0-6); Hematocrit 45.9 % (37.0-53.0); Hemoglobin 14.9 g/dL (13.5-17.5); IMMATURE GRAN ABSOLUTE AUTO 0.03 K/mm3 (0.00-0.10); IMMATURE GRAN PERCENT AUTO 0 % (0-1); LYMPHOCYTES ABSOLUTE AUTO 2.73 K/mm3 (0.84-5.20); LYMPHOCYTES PERCENT AUTO 31 % (21-46); MONOCYTES ABSOLUTE AUTO 1.22 K/mm3 (0.16-1.47); MONOCYTES PERCENT AUTO 14 % (4-13); Mean Corpuscular HGB 26.4 pg (26.0-34.0); Mean Corpuscular HGB Conc 32.5 g/dL (31.5-36.5); Mean Corpuscular Volume 81 fL (80-100); Mean Platelet Volume 10.2 fL (9.1-12.4); NEUTROPHILS ABSOLUTE AUTO 4.56 K/mm3 (1.96-9.15); NEUTROPHILS PERCENT AUTO 52 % (41-73); Platelet Count 223 K/mm3 (150-400); RDW Coefficient Variation 18.1 % (11.7-14.2); RDW Standard Deviation 51.2 fL (35.1-46.3); Red Blood Cell Count 5.64 M/mm3 (4.30-5.90); White Blood Cell Count 8.72 K/mm3 (4.00-11.30)
[2020-12-22 04:41] LABS: Troponin I 0.279 ng/mL (0.000-0.040)
[2020-12-22 04:45] LABS: Alanine Aminotransfer (ALT/SGP 20 U/L (12-78); Albumin, Blood 3.5 g/dL (3.4-5.0); Alk Phos 69 U/L (50-136); Anion Gap 5 mmol/L (6-16); Aspartate Aminotrans (AST/SGOT 22 U/L (12-37); Bilirubin, Total 0.4 mg/dL (0.1-1.0); Blood Urea Nitrogen 19 mg/dL (8-24); Bun/Creatinine Ratio 17.8 (12.0-20.0); CO2, Blood 25 mmol/L (21-32); Calcium, Blood 8.8 mg/dL (8.5-10.1); Chloride, Blood 110 mmol/L (98-108); Creatinine, Blood 1.07 mg/dL (0.60-1.20); Globulin, Blood 3.4 g/dL (2.2-4.0); Glomerular Filtration Rate >60 (60-); Glucose, Blood 120 mg/dL (70-99); Potassium, Blood 4.5 mmol/L (3.5-5.5); Sodium, Blood 140 mmol/L (136-145); Total Protein, Blood 6.9 g/dL (6.4-8.2)
--- NOTE | 2020-12-22 06:32 | NUR ---
SHIFT SUMMARY PT WAS ADMITTED TO PCU, PLAN OF CARE ESTABLISHED AND ORDERS INITIATED. PT STATES "I'M FEELING A LITTLE BETTER" BUT C/O EPIGASTRIC PAIN SINCE RECEIVING 2 SHOCKS FROM [employer] AT HOME. TELE SHOWS AFIB, CONTROLLED RATE AT REST IN THE 60'S TO LOW 100'S. AMIODARONE RUNNING AT 1 MG/MIN AND HEPARIN AT 13 U/KG/HR. VSS, SEE ASSESSMENT FOR DETAILS. PT IS NPO FOR POSSIBLE ANGIO TODAY, CARDIOLOGY CONSULT HAS BEEN CALLED IN TO ANSWERING SERVICE. WILL PROVIDE BEDSIDE REPORT TO ONCOMING SHIFT.
--- NOTE | 2020-12-22 09:25 | NUR ---
UPDATE PHYSICIAN VERBAL ORDER FOR PT TO HAVE BREAKFAST TRAY AT THIS TIME AND TO BE NPO AFTER BREAKFAST.
[2020-12-22 11:37] LABS: SARS-Cov-2 (COVID-19) PCR, MMC NEGATIVE (NEGATIVE)
[2020-12-22 11:55] LABS: Troponin I 0.122 ng/mL (0.000-0.040)
--- NOTE | 2020-12-22 18:09 | NUR ---
SHIFT SUMMARY PT ALERT AND ORIENTED X 4. HR STABLE. BP STABLE. PT ABLE TO TURN SELF IN BED NEEDED. PT REPORTS SEVERE CHRONIC BACK PAIN. REFUSING MEDICATIONS AND HEAT THERAPY AT THIS TIME. OXYGEN SATURATION MAINTAINED ABOVE 92% ON RA. AMIO AND HEPARIN GTT. SEE EMAR. NO CP. PLAN FOR PT TO BE NPO AFTER MIDNIGHT. COVID SWAB DONE FOR POSSIBLE PROCEDURE IN AM. WILL CONT TO MONITOR UNTIL REPORT GIVEN TO NIGHTSHIFT RN.
[2020-12-23 07:15] LABS: BASOPHILS ABSOLUTE AUTO 0.05 K/mm3 (0.00-0.23); BASOPHILS PERCENT AUTO 1 % (0-2); EOSINOPHILS ABSOLUTE AUTO 0.19 K/mm3 (0.00-0.68); EOSINOPHILS PERCENT AUTO 2 % (0-6); Hematocrit 45.8 % (37.0-53.0); Hemoglobin 14.7 g/dL (13.5-17.5); IMMATURE GRAN ABSOLUTE AUTO 0.03 K/mm3 (0.00-0.10); IMMATURE GRAN PERCENT AUTO 0 % (0-1); LYMPHOCYTES ABSOLUTE AUTO 2.78 K/mm3 (0.84-5.20); LYMPHOCYTES PERCENT AUTO 28 % (21-46); MONOCYTES ABSOLUTE AUTO 1.18 K/mm3 (0.16-1.47); MONOCYTES PERCENT AUTO 12 % (4-13); Mean Corpuscular HGB 26.4 pg (26.0-34.0); Mean Corpuscular HGB Conc 32.1 g/dL (31.5-36.5); Mean Corpuscular Volume 82 fL (80-100); Mean Platelet Volume 10.2 fL (9.1-12.4); NEUTROPHILS ABSOLUTE AUTO 5.64 K/mm3 (1.96-9.15); NEUTROPHILS PERCENT AUTO 57 % (41-73); Platelet Count 213 K/mm3 (150-400); RDW Coefficient Variation 18.6 % (11.7-14.2); RDW Standard Deviation 53.1 fL (35.1-46.3); Red Blood Cell Count 5.56 M/mm3 (4.30-5.90); White Blood Cell Count 9.87 K/mm3 (4.00-11.30)
[2020-12-23 07:38] LABS: Anion Gap 6 mmol/L (6-16); Blood Urea Nitrogen 21 mg/dL (8-24); Bun/Creatinine Ratio 19.3 (12.0-20.0); CO2, Blood 21 mmol/L (21-32); Chloride, Blood 112 mmol/L (98-108); Creatinine, Blood 1.09 mg/dL (0.60-1.20); Glomerular Filtration Rate >60 (60-); Glucose, Blood 104 mg/dL (70-99); Potassium, Blood 4.3 mmol/L (3.5-5.5); Sodium, Blood 139 mmol/L (136-145)
--- NOTE | 2020-12-23 17:46 | NUR ---
SHIFT SUMMARY; ASSUMED CARE AT 0700, REPORT FROM LORENA. TAKEN TO BURGL[facility] ALARM INSTALLER AT 0800 FOR ANGIO. RETURNED WITH RIGHT RADIAL TR BAND AND RIGHT GROIN ANGIOSEAL. REMAINED FLAT X4 HOURS FOR GROIN SITE. ARM BOARD IN PLACE AT RADIAL SITE. TR BAND REMOVED AFTER MONITORING, TEGADERM IN PLACE. NO BLEEDING, SWELLING OR REDNESS. RADIAL PULSE STRONG, MOVES ALL RIGHT FINGERS WITHOUT DIFFICULTY. CAP REFILL <3. RIGHT GROIN NON SWOLLEN, NO HEMATOMA OR SIGNS OF BLEEDING. HEPARIN DRIP DC'D BY [facility] PER ORDERS. VSS, A/A/OX4, REPOSITIONS SELF IN BED, NS INFUSING AT 100ML/HR. WILL CONTINUE TO MONITOR AND TREAT UNTIL CHANGE OF SHIFT.
--- NOTE | 2020-12-24 04:41 | NUR ---
PATIENT ALERT AND ORIENTATED, ABLE TO MAKE NEEDS KNOWN, USES CALL LIGHT APPROPRIATELY, CALL LIGHT WITHIN REACH, C/O PAIN X 2 THROUGHOUT SHIFT 01/26 LOWER BACK R/T CHRONIC PAIN FROM BACK SURGERY, REPOSITIONING AND FENTANYL 50MCG IVP GIVEN WITH GOOD RELIEF REPORTED. PATIENT IS A STAND BY ASSIST USES URINAL AT THE BEDSIDE.
[2020-12-24] MEDS ORDERED: METO50ER PO (11:41)
[2020-12-24] MEDS ORDERED: AMIODARONE HCL400 M2 PO (11:45)
[2020-12-24] MEDS ORDERED: LISI5 PO (11:46)
[2020-12-24] MEDS ORDERED: WARF5 PO (11:48)
[2020-12-24] MEDS ORDERED: ELIQUIS5 M2 PO (12:56)
[2020-12-24 13:06] LABS: International Normalized Ratio 1.16; Prothrombin Time Results 12.4 Sec (9.7-11.5)
== END 2020-12-24 14:50 | disposition home or self-care (01) | DRG 247 ==
LOC: ER 20:48 → PCU 21:14 → ICUW 21:14 → PCU 22:42 → ICUW 23:07 → PCU 12-22 00:35
PROVIDERS: Family Medicine; Internal Medicine; Physician Assistant; ADMIT Internal Medicine Cardiovascular Disease
PROC: 027135Z Dilation of Coronary Artery, Two Arteries with Two Drug-eluting Intraluminal Devices, Percutaneous Approach (ICD-10-PCS; principal; 2020-12-21)
PROC: B2111ZZ Fluoroscopy of Multiple Coronary Arteries using Low Osmolar Contrast (ICD-10-PCS; 2020-12-21)
DX: I21.4 Non-ST elevation (NSTEMI) myocardial infarction (principal); T82.855A Stenosis of coronary artery stent, initial encounter; I48.20 Chronic atrial fibrillation, unspecified; I50.20 Unspecified systolic (congestive) heart failure; I47.2 Ventricular tachycardia; E78.5 Hyperlipidemia, unspecified; I25.10 Atherosclerotic heart disease of native coronary artery without angina pectoris; F17.210 Nicotine dependence, cigarettes, uncomplicated; I25.2 Old myocardial infarction; Z79.82 Long term (current) use of aspirin; Z79.899 Other long term (current) drug therapy; I25.5 Ischemic cardiomyopathy; I73.9 Peripheral vascular disease, unspecified; Z79.84 Long term (current) use of oral hypoglycemic drugs
CPT/HCPCS: 36415; 71045; 76937; 80047; 80048; 80053; 82550; 83690; 83735; 83880; 84484; 85014; 85025; 85347; 85610; 85730; 92978; 93005; 93010; 93306; 93454; 93571; 96374; 96375; 96376; 99152; 99153; 99285-25; A9270; C1725; C1753; C1760; C1769; C1874; C1887; C1894; C9600; G0378; J0282; J1644; J2250; J2405; J3010; J7030; J7040; J7050; J7060; Q9967; U0004

== ENCOUNTER 2022-02-08 09:56 | Inpatient (IN) | payer MEDICARE ==
[~2022-02-08] VITALS: Ht 175.3 cm; Wt 89.2 kg
[~2022-02-08 09:56] MED LIST changes: +AMIODARONE HCL400 M2 PO; +ASPI325EC PO; +CLOP75 PO; +Crestor40 MG PO; +ELIQUIS5 M2 PO; +METO100ER PO; +METO50ER PO; +WARF5 PO
[2022-02-08 10:38] LABS: BASOPHILS ABSOLUTE AUTO 0.06 K/mm3 (0.00-0.23); BASOPHILS PERCENT AUTO 1 % (0-2); EOSINOPHILS ABSOLUTE AUTO 0.21 K/mm3 (0.00-0.68); EOSINOPHILS PERCENT AUTO 2 % (0-6); Hematocrit 32.2 % (37.0-53.0); Hemoglobin 8.3 g/dL (13.5-17.5); IMMATURE GRAN ABSOLUTE AUTO 0.05 K/mm3 (0.00-0.10); IMMATURE GRAN PERCENT AUTO 1 % (0-1); LYMPHOCYTES ABSOLUTE AUTO 1.74 K/mm3 (0.84-5.20); LYMPHOCYTES PERCENT AUTO 16 % (21-46); MONOCYTES ABSOLUTE AUTO 1.46 K/mm3 (0.16-1.47); MONOCYTES PERCENT AUTO 14 % (4-13); Mean Corpuscular HGB 16.8 pg (26.0-34.0); Mean Corpuscular HGB Conc 25.8 g/dL (31.5-36.5); Mean Corpuscular Volume 65 fL (80-100); Mean Platelet Volume 9.1 fL (9.1-12.4); NEUTROPHILS PERCENT AUTO 67 % (41-73); NRBC ABSOLUTE 0.04 K/mm3 (0.00-0.02); NRBC Auto 0.4 /100 WBC (0.0-0.2); Platelet Count 550 K/mm3 (150-400); RDW Coefficient Variation 22.8 % (11.7-14.2); RDW Standard Deviation 50.7 fL (35.1-46.3); Red Blood Cell Count 4.93 M/mm3 (4.30-5.90); White Blood Cell Count 10.72 K/mm3 (4.00-11.30)
[2022-02-08 11:00] LABS: Albumin, Blood 3.1 g/dL (3.4-5.0); Albumin/Globulin Ratio 0.9 (0.8-1.8); Bilirubin, Total 0.6 mg/dL (0.1-1.0); Bun/Creatinine Ratio 18.3 (12.0-20.0); Calcium, Blood 8.2 mg/dL (8.5-10.1); Creatinine, Blood 0.87 mg/dL (0.60-1.20); Globulin, Blood 3.6 g/dL (2.2-4.0); Potassium, Blood 3.6 mmol/L (3.5-5.5); Total Protein, Blood 6.7 g/dL (6.4-8.2)
[2022-02-08] MEDS ORDERED: ASPI81CH PO (17:21)
[2022-02-08 18:49] LABS: CPK Creatine Kinase 181 U/L (39-308)
[2022-02-08 19:14] LABS: Percent Saturation 4.2 % (20.0-50.0)
[2022-02-08 19:23] LABS: IMMATURE RETIC FRACTION 28.4 % (2.3-16.0); RETIC HGB EQUIVALENT 17.4 pg (28.20-36.60); RETICULOCYTE ABSOLUTE 0.1226 M/mm3 (0.0200-0.1100); RETICULOCYTE COUNT PERCENT 2.67 % (0.50-2.50)
[2022-02-08 20:42] LABS: International Normalized Ratio 1.12; Prothrombin Time Results 11.7 Sec (9.7-11.5)
[2022-02-08 20:54] LABS: Anti-Xa UFH, PHA Monitoring >1.50 IU/mL
[2022-02-09 04:44] LABS: BASOPHILS ABSOLUTE AUTO 0.06 K/mm3 (0.00-0.23); BASOPHILS PERCENT AUTO 0 % (0-2); EOSINOPHILS ABSOLUTE AUTO 0.03 K/mm3 (0.00-0.68); EOSINOPHILS PERCENT AUTO 0 % (0-6); Hematocrit 30.6 % (37.0-53.0); IMMATURE GRAN ABSOLUTE AUTO 0.14 K/mm3 (0.00-0.10); IMMATURE GRAN PERCENT AUTO 1 % (0-1); LYMPHOCYTES ABSOLUTE AUTO 0.93 K/mm3 (0.84-5.20); LYMPHOCYTES PERCENT AUTO 7 % (21-46); MONOCYTES ABSOLUTE AUTO 1.42 K/mm3 (0.16-1.47); MONOCYTES PERCENT AUTO 10 % (4-13); Mean Corpuscular HGB 16.9 pg (26.0-34.0); Mean Corpuscular HGB Conc 26.1 g/dL (31.5-36.5); Mean Corpuscular Volume 65 fL (80-100); Mean Platelet Volume 9.4 fL (9.1-12.4); NEUTROPHILS ABSOLUTE AUTO 11.53 K/mm3 (1.96-9.15); NEUTROPHILS PERCENT AUTO 82 % (41-73); NRBC ABSOLUTE 0.03 K/mm3 (0.00-0.02); NRBC Auto 0.2 /100 WBC (0.0-0.2); Platelet Count 612 K/mm3 (150-400); RDW Coefficient Variation 22.6 % (11.7-14.2); RDW Standard Deviation 50.6 fL (35.1-46.3); Red Blood Cell Count 4.72 M/mm3 (4.30-5.90); White Blood Cell Count 14.11 K/mm3 (4.00-11.30)
[2022-02-09 05:13] LABS: Albumin, Blood 3.1 g/dL (3.4-5.0); Albumin/Globulin Ratio 0.9 (0.8-1.8); Bilirubin, Total 0.8 mg/dL (0.1-1.0); Bun/Creatinine Ratio 18.6 (12.0-20.0); Calcium, Blood 8.8 mg/dL (8.5-10.1); Creatinine, Blood 1.02 mg/dL (0.60-1.20); Globulin, Blood 3.6 g/dL (2.2-4.0); Total Protein, Blood 6.7 g/dL (6.4-8.2)
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
[2022-02-09 06:14] LABS: Creatine Kinase MB 10.8 ng/mL (0.0-3.6); Creatine Kinase MB Index 3.1 (0.0-4.0)
--- NOTE | 2022-02-09 08:00 | NUR ---
PT IS A&O X4. HE APPEARS ANXIOUS/RESTLESS. HE IS WRITHING IN THE BED. PT IS SOMEWHAT VAGUE IN DESCRIBING HIS PAIN. PT REPORTS 10/10 LOW BACK PAIN THAT IS CHRONIC. PT STATES THAT HE NORMALLY SMOKES MARIJUANA FOR PAIN AT HOME. PT STATES THAT HE HAS HAD MINIMAL RELIEF WHEN GIVEN IV FENTANYL. DR. VICTORIA AWARE. PT MED WITH NORCO PO FOR PAIN-SEE EMAR. PT STATES THAT HIS CHEST PAIN IS "STILL THERE, BUT THE BACK PAIN IS OVERSHADOWING IT." ECG SHOWS SR WITH RATE 90'S WITH OCCASIONAL ECTOPY. PT DOES HAVE ICD.NO NOTED RUNS OF VTACH THIS AM. PT STATES THAT HE WAS NOT TAKING HIS AMIODARONE FOR QUITE SOME TIME IT IS "TOO EXPENSIVE." SBP 130'S. DP/PT PULSES 2+. NO NOTED EDEMA. LUNGS DIMINISHED IN THE BASES. NO SOB AT REST. NO NOTED COUGH. SATS>90% ON RA. PT DENIES GI DISTRESS. PT TOOK AM MEDS WITH SIP OF WATER. HE IS NPO FOR POSSIBLE ANGIO TODAY. CARDIOLOLGY CONSULT HAS BEEN REQUESTED. HEPARIN DRIP @ 15 UNITS/KG/HR. NEXT PTT @ 1100. PT SITTING AT BEDSIDE.CALL LIGHT WITHIN REACH.
--- NOTE | 2022-02-09 09:00 | NUR ---
DR. VICTORIA IN ROOM TO EVALUATE PT. PT IS SLEEPING AT THIS TIME. TO ROUND ON PT LATER THIS AM.
--- NOTE | 2022-02-09 09:45 | NUR ---
DR. CABRERA IN TO SEE PT. UPDATE GIVEN.
--- NOTE | 2022-02-09 10:29 | NUR ---
PT REPORTS 8/10 LOWER BACK, RIGHT LEG, AND MIDSTERNAL CHEST PAIN. PT STATES THAT HIS CHEST PAIN IS WORSE WITH DEEP BREATHING. MED WITH FENTANYL 50 MCG IVP X 1 FOR PAIN. FIRST DOSE OF FUROSEMIDE AND ALDACTONE GIVEN.
--- NOTE | 2022-02-09 11:30 | NUR ---
PT REPORTING 9/10 PAIN TO RIGHT LEG, LOWER BACK, AND MIDSTERNAL AREA. PT STATES THAT THE PAIN GETS WORSE WITH DEEP BREATHING. PT CONTINUES TO COMPLAIN OF PAIN DESPITE RECENTLY BEING MEDICATED WITH FENTANYL-SEE EMAR. MED WITH NORCO PO-SEE EMAR. ECG SHOWS SR WITH RATE 90'S AND OCCASIONAL PVC'S. PT HAS OCCASIONAL RUNS OF PSVT, BUT NOTHING SUSTAINED AND NO NOTED OVERRIDE PACING. LUNGS REMAIN DIMINISHED IN THE BASES. SATS 91% ON RA. NO NOTED COUGH OR SOB. PT STATES THAT HIS APPETITE HAS BEEN POOR FOR THE LAST COUPLE OF MONTHS HIS PAIN LEVEL HAD EXCILATED AND HE HAD MINIMAL RELIEF. CALL LIGHT WITHIN REACH. PT WILL CALL FOR ASSIST PRN. HE SITS AT THE BEDSIDE AND CHANGES POSITIONS FREQUENTLY.
--- NOTE | 2022-02-09 12:22 | NUR ---
PTT THERAPEUTIC PER PHARMACY-CONTINUE AT CURRENT RATE AND RE-CHECK PTT IN 6 HOURS.
--- NOTE | 2022-02-09 13:15 | NUR ---
PT APPEARS TO BE SLEEPING. NO NOTED DISTRESS.
--- NOTE | 2022-02-09 16:00 | NUR ---
PT REPORTS 7/10 LOW BACK, RIGHT LEG, AND MIDSTERNAL PAIN. MEDICATED WITH NORCO [id number] EMAR. PT HAS BEEN RESTING INTERMITTENTLY WHEN NOT DISTURBED, AND OVERALL APPEARS TO BE MORE COFORTABLE THAN PREVIOUS ASSESSMENTS. VS WDL. ECG CONTINUES SR WITH RATE 70'S. FREQUENT ECTOPY. JVD AND LOWER EXTREMITY EDEMA CONTINUES. POOR URINE OUTPUT DESPITE LASIX AND ALDACTONE.HEPARIN DRIP CONTINUES @ 15 UNITS/KG/HR-NEXT PTT @1900.
--- NOTE | 2022-02-09 17:43 | NUR ---
URINE OUTPUT IMPROVED SOMEWHAT TOWARDS THE END OF THE SHIFT-INTAKE 665 VS 925 OUT THIS SHIFT.
--- NOTE | 2022-02-10 06:03 | NUR ---
SHIFT SUMMARY PT ALERT AND ORIENTED X4. HR 60-70'S SR. NO EPISODES OF VTACH OR SVT TONIGHT. BP STABLE. ON RA SATS OVER 96%. AFEBRILE. ON HEP GTT. CHRONIC PAIN BETTER MANAGED TONIGHT WITH NORCO. IN BED SLEEPING WITH CALL ALARM AT SIDE, WILL CONTINUE TO MONITOR UNTIL REPORT GIVEN TO DAYSHIFT RN
[2022-02-10 10:45] LABS: Hemoglobin 7.7 g/dL (13.5-17.5)
[2022-02-10 11:24] LABS: Bun/Creatinine Ratio 20.5 (12.0-20.0); Calcium, Blood 8.4 mg/dL (8.5-10.1); Creatinine, Blood 1.46 mg/dL (0.60-1.20); Potassium, Blood 4.2 mmol/L (3.5-5.5)
--- NOTE | 2022-02-10 18:13 | NUR ---
NO ACUTE CHANGES T/O THE SHIFT. PT W/O C/O CP. MEDICATED PER EMAR FOR CHRONIC BACK/LEG PAIN. LAB CHANGES NOTED AND PROVIDERS NOTIFIED APPROPRIATE. NO S/SX OF BLEEDING NOTED, PT DENIES DARK OR TARRY STOOLS. ABD CT COMPLETED. SEE DOCUMENTED VS. PT ABLE TO USE CALL LIGHT FOR NEEDS, CALL LIGHT IN REACH, WILL CONTINUE TO MONITOR AND GIVE REPORT TO NOC SHIFT RN.
--- NOTE | 2022-02-10 19:19 | NUR ---
ASSUMPTION OF CARE WHILE RECEIVING REPORT PT WAS NAUSEATED AND HAD 100 EMISIS OUTPUT. PT WAS THEN MEDICATED WITH ZOFRAN PER ORDER. PT DENIED CHEST PAIN OR SOB. MINUTES LATER PT WAS ASKED IF HIS SYMPTOMS SUBSIDED HE REPORTED NO ABDOMINAL PAIN/TENDERNESS OR NAUSEA BUT REPORTED DIZZINESS. BLOOD PRESSURE WAS CHECKED AND HE WAS HYPOTENSIVE. SATS WERE IN THE 90'S ON ROOM AIR. HE THEN REPORTED SEVERE LOW BACK PAIN. CHARGE NURSE WAS NOTIFIED OF FINDINGS.
--- NOTE | 2022-02-10 19:45 | NUR ---
CALLED DR RUIZ REGARDING PT'S BP AND SEVERE BACK PAIN. NS BOLUS WAS ORDERED WITH NO IMPROVEMENT AND ORDER OF MIDODRINE WAS GIVEN FOR HYPOTENSION AND NORCO FOR BACK PAIN. DR RUIZ WAS NOTIFIED OF CT FINDING AND RECENT HGB LABS. DR JOLLEY TO CALL SURGICAL CONSULT TO DR OLIVO. DUE TO FINDINGS AND NO IMPROVEMENT WITH PT, PT WAS TRANSFERED TO ICU 9 WITH ALL BELONGINGS AND REPORT WAS GIVEN TO NURSE.
[2022-02-10 21:21] LABS: Stool Occult Blood Guaiac 1 Pos (Neg)
[2022-02-10 21:43] LABS: Hematocrit 34.9 % (37.0-53.0); Hemoglobin 8.9 g/dL (13.5-17.5)
[2022-02-10 22:43] LABS: C DIFFICILE DNA NEGATIVE (Negative)
--- NOTE | 2022-02-11 00:51 | NUR ---
ARRIVAL TO ICU PT ARRIVED TO ICU 9 AT 2009 VIA PCU BED AND TRANSFERED OVER TO ICU BED VIA SLIDE SHEET. PT TRANSFERED OVER D/T HYPOTENSION, SBP 70'S, MAP 50'S, O2 REQUIREMENTS UP FROM RA TO 4L NC. HE IS PALE, COOL, DIAPHORETIC, AND VERY PAINFUL TO TOUCH. CALL IMMEDIATLY MADE TO DR PRAJAPATI WHO PROVIDED ORDERS FOR LEVOPHED TO BE STARTED. IN REPORT FROM GAGAN IN PCU, DR RUIZ WANTED A CONSULT FOR DR OLIVO R/T ABD ANEURYSM; THIS RN CALLED DR OLIVO FOR UPDATE, SHE STATED THAT SURGERY WAS NOT NEEDED AT THIS TIME BUT MAY OCCUR IN THE OUTPATIENT SETTING. CALL THEN MADE TO DR RUIZ WHO PROVIDED ORDERS FOR A STAT H&H, AND GI CONSULT. H&H RESULTS SHOW IMPROVEMENT. PT A/O X4 AND ABLE TO ANSWER QUESTIONS APPROPRIATLY; CHALLENGING TO KEEP PT ON TASK D/T PAIN; PRN PAIN MEDICATIONS AVAILABLE, GIVEN, AND HELFPUL; HE IS NOW RESTING AND WHEN NOT STIMULATED SLEEPS. AFEBRILE. SPO2 >95% ON 4L NC. HR 50-60'S. LEVOPHED INFUSING AT 4MCG/MIN; SBP NOW 100'S, MAP 70'S. ABD MOD DISTENDED AND FIRM UPON ARRIVAL TO ICU; ABD ALSO VERY PAINFUL TO TOUCH, PAIN STARTS IN THE LLQ AND WRAPS AROUND TO HIS BACK. 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 ONE EPISODE OF URINARY INCONTINENCE NOTED; CONDOM CATH PLACED. SEE CHART FOR PHOTOS OF VARIOUS SCABS TO BLE AND ULCER TO RT HEEL. SEE SHIFT ASSESSMENT FOR FULL ASSESSMENT. CALLED DR RUIZ AT 2250 REGARDING PT ABD BECOMING MORE FIRM THAN PREVIOUSLY. NEW ORDERS PROVIDED FOR AN ABD X-RAY.
[2022-02-11 03:57] LABS: Hematocrit 31.7 % (37.0-53.0); Hemoglobin 8.2 g/dL (13.5-17.5); Mean Corpuscular HGB 17.3 pg (26.0-34.0); Mean Corpuscular HGB Conc 25.9 g/dL (31.5-36.5); Mean Corpuscular Volume 67 fL (80-100); Mean Platelet Volume 9.4 fL (9.1-12.4); NRBC ABSOLUTE 0.57 K/mm3 (0.00-0.02); NRBC Auto 1.6 /100 WBC (0.0-0.2); Platelet Count 724 K/mm3 (150-400); RDW Coefficient Variation 23.2 % (11.7-14.2); RDW Standard Deviation 51.8 fL (35.1-46.3); Red Blood Cell Count 4.73 M/mm3 (4.30-5.90); White Blood Cell Count 36.62 K/mm3 (4.00-11.30)
[2022-02-11 04:46] LABS: Albumin, Blood 2.4 g/dL (3.4-5.0); Albumin/Globulin Ratio 0.7 (0.8-1.8); Bilirubin, Total 1.4 mg/dL (0.1-1.0); Bun/Creatinine Ratio 23.6 (12.0-20.0); Calcium, Blood 8.2 mg/dL (8.5-10.1); Creatinine, Blood 1.74 mg/dL (0.60-1.20); Globulin, Blood 3.4 g/dL (2.2-4.0); Potassium, Blood 4.8 mmol/L (3.5-5.5); Total Protein, Blood 5.8 g/dL (6.4-8.2)
[2022-02-11 06:20] LABS: Source, Urine Foley catheter
[2022-02-11 06:32] LABS: Appearance, Urine Hazy (Clear); Blood, Urine 4+ (Neg); Color, Urine Brown (P-Yellow); Glucose Qualitative, Urine Neg (Neg); Ketones, Urine 1+ (Neg); Leukocyte Esterase, Urine 3+ (Neg); Nitrite, Urine Neg (Neg); Protein, Urine 2+ (Neg); Specific Gravity, Urine 1.015 (1.003-1.022); Urobilinogen, Urine 2+ (Normal)
--- NOTE | 2022-02-11 06:43 | NUR ---
END OF SHIFT SUMMARY PT SLEPT FOR MOST OF THE NIGHT BUT WHILE AWAKE WAS IN 8-10/10 PAIN; PRN'S GIVEN, HELPFUL, AND CAUSES HIM TO SLEEP. HE IS A/O X4 BUT HAS CHALLENGES USING CALL LIGHT. SPO2 >95% ON 4L NC. AFEBRILE. HR 60'S. SBP 80-100; MAP 70'S; LEVOPHED TITRATED UP TO 7MCG/MIN. ABD CONT TO BE TENDER, NO CHANGE IN FIRMNESS SINCE LAST CALL TO DR RUIZ; RECTAL TUBE IN PLACE WITH 1000ML OUTPUT. TEMP GOLDSTEIN PLACED D/T RETENTION, UA SENT; 570ML OUTPUT. NO CHANGES IN SKIN SINCE LAST NOTE. WILL REPORT TO AM RN WHEN AVAILABLE.
[2022-02-11 07:04] LABS: Bilirubin, Urine 2+ (Neg)
[2022-02-11 07:08] LABS: White Blood Cells, Urine 25-50 /hpf (0-5)
[2022-02-11 07:09] LABS: Squamous Epithelial Cells Rare /hpf (Few)
[2022-02-11 07:11] LABS: Bacteria Many /hpf
[2022-02-11 10:44] LABS: PO2 Arterial 73.6 mmHg (80-100); pH Blood Arterial 7.31 (7.35-7.45)
--- NOTE | 2022-02-11 19:15 | NUR ---
SUMMARY PT RESTING IN BED. HAS MOMENTS WHERE HE IS EASY TO WAKE AND A/O X4 THEN OTHER TIMES HE IS NOT RESPONSIVE. THIS DOES SEEM TO CORRELATE WITH MOMENTS OF HYPOTENSION. ON LEVOPHED AT 12MCG/MIN. IF PT IS SAT UP IN BED HIS BP WILL DROP SIGNIFICANTLY. CTA OF ABD DONE THIS AM, THERE IS NO SURGICAL INTERVENTION AT THIS TIME. PT HAS VERY POOR BLOOD FLOW TO EXTREMITIES. R DP PULSE ABSENT, L DP PULSE VERY FAINT WITH DOPPLER. DR. KOLB MADE AWARE AND SHE CONFIRMED THAT PT HAS VERY POOR FLOW TO LOWER EXTREMITIES. PT HAS WOUND TO R HEEL THAT HAS BEEN THERE FOR AWHILE. CLEANSED WOUND WITH WOUND SPRAY, PLACED CALCIUM ALGINATE IN WOUND AND COVERED WITH FOAM DRESSING. THIS EVENING PT WAS WIDE AWAKE WITH PAIN ALL OVER BODY. GAVE 25MCG OF FENTANYL WHICH HELPED. TRIED TO REPOSITION PT BUT HE WANTED TO POSITION HIMSELF. DR. VICTORIA WAS GIVEN DR. GRACIA'S NUMBER FOR CONSULT THIS AM THE ANSWERING SERVICE WOULD NOT TAKE A CONSULT FROM THIS RN.
--- NOTE | 2022-02-11 20:42 | NUR ---
ASSUMED CARE. AO TO SELF. CONFUSED ON PLACE, DAY AND EVENT. ABLE TO MAKE NEEDS KNOWN BUT NEEDS RE-ORIENTATION AT TIMES. FALLS ASLEEP EASILY. C/O PAIN TO LOWER BACK NEAR TAILBONE. AREA CLEAR OF S/S OF PRESSURE ULCER. LS DIM T/O MORE SEVERE ON THE RIGHT THAN LEFT. SATS >95% ON 6L. COUGH NON-PRODUCTIVE. HR SINUS RATE IN 80'S, OCCATIONAL PVC'S, DENIES ANY CHEST PAIN. EDEMA NOTED TO BLE AND BUE. +1 PITTING. ABD FIRM, NON-TENDER, DENIES NAUSEA, VERY THIRSTY. RECTAL TUBE WIHT FOUL ODOR BROWN STOOL IN BAG. CATH CARE PROVIDED, TEA COLOR URINE. BP SOFT WITH MAP 60-65, LEVO INCREASED TO 13MCQ. SEVERAL SCABS ON BLE, NO PULSES TO RIGHT PEDAL, DOPPLER ONLY ON THE LEFT, FEET VERY COOL TO TOUCH. WILL CONTINUE TO MONITOR. CALL [facility] IN REACH.
--- NOTE | 2022-02-11 21:44 | NUR ---
CALLED DR. KOLB TO INFORM OF INCREASE N LEVOPHED AND REQUEST ORDER FOR VASOPRESSION. WILL START VASO.
--- NOTE | 2022-02-12 03:48 | NUR ---
POSITIVE BLOOD CULTURES- GRAM (-) BACCILI. DR. PRAJAPATI NOTIFIED. NO NEW ORDERS.
[2022-02-12 03:51] LABS: Hematocrit 26.5 % (37.0-53.0); Mean Corpuscular HGB 17.6 pg (26.0-34.0); Mean Corpuscular HGB Conc 26.4 g/dL (31.5-36.5); Mean Corpuscular Volume 67 fL (80-100); Mean Platelet Volume 9.4 fL (9.1-12.4); NRBC ABSOLUTE 0.23 K/mm3 (0.00-0.02); NRBC Auto 0.8 /100 WBC (0.0-0.2); Platelet Count 690 K/mm3 (150-400); RDW Coefficient Variation 23.3 % (11.7-14.2); RDW Standard Deviation 51.7 fL (35.1-46.3); Red Blood Cell Count 3.98 M/mm3 (4.30-5.90); White Blood Cell Count 29.64 K/mm3 (4.00-11.30)
[2022-02-12 04:13] LABS: Albumin, Blood 1.9 g/dL (3.4-5.0); Albumin/Globulin Ratio 0.6 (0.8-1.8); Bilirubin, Total 0.7 mg/dL (0.1-1.0); Bun/Creatinine Ratio 31.3 (12.0-20.0); Calcium, Blood 7.1 mg/dL (8.5-10.1); Creatinine, Blood 1.95 mg/dL (0.60-1.20); Globulin, Blood 3.2 g/dL (2.2-4.0); Total Protein, Blood 5.1 g/dL (6.4-8.2)
[2022-02-12 04:24] LABS: BAND PERCENT MAN 30 % (0-8); BASOPHILS PERCENT MAN 0 % (0-2); EOSINOPHILS PERCENT MAN 0 % (0-6); LYMPHOCYTES ABSOLUTE MAN 0.88 K/mm3 (0.84-5.20); LYMPHOCYTES PERCENT MAN 3 % (21-46); METAMYELOCYTE ABSOLUTE MAN 1.48 K/mm3 (0.00-0.00); METAMYELOCYTE PERCENT MAN 5 % (0-0); MONOCYTES ABSOLUTE MAN 2.96 K/mm3 (0.16-1.47); MONOCYTES PERCENT MAN 10 % (4-13); SEG NEUTROPHILS PERCENT MAN 52 % (41-73); TOTAL CELLS COUNTED 100
--- NOTE | 2022-02-12 05:15 | NUR ---
SHIFT SUMMARY: PT EASILY AWAKENED WIHT VERBAL STIMULI. CONFUSED REGARDING PLACE, TIME AND EVENT. EASILY RE-ORIENTED. PAIN HAS BEEN AVERAGE 6-8 THIS SHIFT, FENTANYL AND NORCO GIVEN, HEATING PAD ALSO APPLIED. PAIN MOSTLY CENTERED AT LOWER BACK AREA. LS DIM T/O. COUGH IS NON-PRODUCTIVE. SATS HAVE MAINTAINED >95% ON 4L. SINUS ON MONITOR WITH RATE IN THE 80'S. BP HAS BEEN SOFT, LEVO TITRATED TO KEEP MAP ABOVE 65. LEVO GOT UP TO 14MCQ AT WHICH VASO WAS STARTED THEN LEVO TITRATED BACK DOWN, AND IS CURRENTLY AT 4MCQ. ABD FIRM, TENDER. RECTAL TUBE WITH 500CC OF BROWN ODOROUS STOOL. GOLDSTEIN WITH 600CC OF TEA COLOR URINE. MULTIPLE SCABS AND WOUNDS TO BLE. NO PULSE ON RIGHT PEDAL, DOPPLER ONLY ON LEFT, MD IS AWARE. HAS SLEPT WELL T/O NOC. CALL LIGHT IS IN REACH. WILL CONTINUE TO MONITOR.
--- NOTE | 2022-02-12 08:00 | NUR ---
PT SOMULENT THIS AM. AWAKENS TO VERBAL AND FOLLOWS COMMANDS. PT ORIENTED TO SELF AND SURROUNDINGS, BUT STATES "I DON'T KNOW WHAT HAPPENED OR WHY I'M HERE." PT DENIES PAIN AT PRESENT. GENERALIZED WEAKNESS NOTED. TEMP 99.6. ECG SHOWS SR WITH FIRST DEGREE AV BLOCK. PT HAS ICD.PT HAS NEW ST DEPRESSION PER DR. KOLB-12 LEAD ECG DONE. TROPONIN DRAWN. MAP TRENDING 70'S ON LEVOPHED @ 3 MCG/MIN AND VASOPRESSIN @0.04 UNITS/MIN. LUNGS DIMINISHED R>L. SATS>90% ON 3 LITERS NASAL CANULA. NO NOTED COUGH. PT GIVEN PO MEDS WITH SIP OF WATER. ASPIRATION PRECAUTIONS. PLAVIX AND ASA HELD HGB 7.0. ABDOMEN IS DISTENDED AND SLIGHTLY FIRM. RECTAL TUBE DRAINING BLACK LIQUID DRAINAGE. GOLDSTEIN TO BSD WITH SMALL AMOUNT OF TEA COLORED URINE-NS 500 CC BOLUS GIVEN PER DR. KOLB ORDERS. PT SKIN IS VERY PALE. LOWER EXTREMITIES WITH SCATTERED SCABS. HEEL PROTECTORS ON AND HEELS FLOATED. COCCYX AND BUTTOCKS RED-CALAZIME APPLIED AND PT TURNED TO HIS SIDE.
[2022-02-12 11:18] LABS: Hematocrit 25.9 % (37.0-53.0); Hemoglobin 6.9 g/dL (13.5-17.5)
--- NOTE | 2022-02-12 12:00 | NUR ---
PT RESTING QUIETLY WHEN NOT DISTURBED SINCE GIVEN NORCO PO AROUND 1135. PT WAS COMPLAINING OF 10/10 LOW BACK AND LEG PAIN. PT REPOSITIONED TO COMFORT ON RIGHT SIDE AND HE APPEARS TO BE SLEEPING AT THIS TIME. MAP TRENDING >65 ON LEVOPHED @ 3 MCG/MIN AND VASOPRESSIN @ 0.04 UNITS. HGB 6.9-DR. KOLB AWARE. PT TYPE AND SCREEN COMPLETE AND 1 UNIT PRBC'S TO BE TRANSFUSED. RE-CHECK H&H ONE HOUR AFTER TRANSFUSION. SATS 100% ON R/A.
--- NOTE | 2022-02-12 14:53 | NUR ---
PT FRIEND MAXIMINO IN FOR VISIT. PT CONSUELO SENT HOME SO THAT MAXIMINO CAN PAY PT RENT AND DO SOME SHOPPING-PER PT REQUEST.
--- NOTE | 2022-02-12 15:30 | NUR ---
PT MOANING AND WRITHING IN PAIN. PT REPORTS 10/10 LOW BACK AND LEG PAIN. MED WITH NORCO PO AND FENTANYL 50 MCG IVP X 1 FOR PAIN-SEE EMAR. ECG CONTINUES SR WITH RATE 90'S. MAP TRENDING 65-70 ON LEVOPHED @ 2 MCG/MIN. LOWER EXTREMITIES REMAIN MOTTLED. PULSES PER DOPPLER EXCEPT FOR RIGHT DP ABSENT. PRBC'S INFUSING. LUNGS REMAIN DIMINISHED. SATS>90% ON 1 LITER NASAL CANULA OCCASIONAL, NONPRODUCTIVE COUGH. NPO EXCEPT FOR SIPS OF WATER. PT IS AT RISK FOR ASPIRATION. HOWEVER, HE HAS TAKEN MEDS WITH SIPS OF WATER WITHOUT DIFFICULTY. WILL RE-CHECK H&H 1HR AFTER TRANSFUSION COMPLETED.
--- NOTE | 2022-02-12 16:00 | NUR ---
PT RESTING QUIETLY WHEN NOT DISTURBED. AWAKENS EASILY TO VOICE AND FOLLOWING COMMANDS, BUT DISORIENTED TO PLACE AND TIME. NO ACUTE DISTRESS NOTED.
--- NOTE | 2022-02-12 18:03 | NUR ---
PT DENIES PAIN. REPOSITIONED TO RIGHT SIDE. PT ASSISTED WITH REPOSITIONING. MAP 50'S. LEVOPHED TITRATED UP TO 4 MCG/MIN.
[2022-02-12 18:55] LABS: Hematocrit 28.9 % (37.0-53.0); Hemoglobin 7.9 g/dL (13.5-17.5)
--- NOTE | 2022-02-12 20:00 | NUR ---
ASSUMED CARE. AOX SELF, ABLE TO STATES HE IS IN THE HOSPTIAL BUT CONFUSED ON DAY AND TIME. DOES FOLLOW DIRECTIONS, TIRED AND FATIQED, DOES NOT REALLY OPEN EYES. DR. KOLB CAME BY TO SEE PATIENT, WILL MONITOR H&H, IF DROPS AGAIN WILL TRANSFUSE ANOTHER UNIT OF BLOOD. CURRENTLY BP IS SOFT WITH MAP TRENDING 60-65 ON 5MCQ OF LEVO. VASO IS ON SB. HR TACHY IN THE LOW 100'S. DENIES ANY PAIN OR DISCOMFORT AT THIS TIME. RECTAL TUBE IN PLACE AND DRAINING, GOLDSTEIN WITH TEA COLOR URINE. ON RA WITH SATS IN THE HIGH 90'S. WILL CONTINUE TO MONITOR.
[2022-02-13 00:20] LABS: Hematocrit 28.2 % (37.0-53.0); Hemoglobin 7.9 g/dL (13.5-17.5)
[2022-02-13 04:30] LABS: Hematocrit 27.6 % (37.0-53.0); Hemoglobin 7.8 g/dL (13.5-17.5); Mean Corpuscular HGB Conc 28.3 g/dL (31.5-36.5); Mean Corpuscular Volume 67 fL (80-100); Mean Platelet Volume 9.3 fL (9.1-12.4); NRBC ABSOLUTE 0.17 K/mm3 (0.00-0.02); NRBC Auto 0.7 /100 WBC (0.0-0.2); Platelet Count 617 K/mm3 (150-400); RDW Coefficient Variation 25.2 % (11.7-14.2); RDW Standard Deviation 54.4 fL (35.1-46.3); White Blood Cell Count 24.47 K/mm3 (4.00-11.30)
[2022-02-13 04:50] LABS: Albumin, Blood 1.6 g/dL (3.4-5.0); Albumin/Globulin Ratio 0.5 (0.8-1.8); Bilirubin, Direct 0.3 mg/dL (0.0-0.3); Bilirubin, Indirect 0.4 mg/dL (0.1-0.7); Bilirubin, Total 0.7 mg/dL (0.1-1.0); Bun/Creatinine Ratio 35.7 (12.0-20.0); Calcium, Blood 6.6 mg/dL (8.5-10.1); Creatinine, Blood 1.96 mg/dL (0.60-1.20); Globulin, Blood 3.5 g/dL (2.2-4.0); Magnesium, Blood 3.1 mg/dL (1.6-2.4); Potassium, Blood 4.8 mmol/L (3.5-5.5); Total Protein, Blood 5.1 g/dL (6.4-8.2)
[2022-02-13 05:26] LABS: BAND PERCENT MAN 19 % (0-8); BASOPHILS PERCENT MAN 0 % (0-2); EOSINOPHILS PERCENT MAN 0 % (0-6); LYMPHOCYTES ABSOLUTE MAN 0.73 K/mm3 (0.84-5.20); LYMPHOCYTES PERCENT MAN 3 % (21-46); METAMYELOCYTE ABSOLUTE MAN 0.24 K/mm3 (0.00-0.00); METAMYELOCYTE PERCENT MAN 1 % (0-0); MONOCYTES ABSOLUTE MAN 1.22 K/mm3 (0.16-1.47); MONOCYTES PERCENT MAN 5 % (4-13); NEUTROPHILS ABSOLUTE MAN 22.26 K/mm3 (1.96-9.15); SEG NEUTROPHILS PERCENT MAN 72 % (41-73); TOTAL CELLS COUNTED 100
--- NOTE | 2022-02-13 05:58 | NUR ---
SHIFT SUMMARY: AOX1, HAS BEEN FATIQUED AND SLEEPY THE ENTIRE SHIFT. WILL WAKE WITH VERBAL STIMULI AND ANSWER QUESTIONS BUT WOULD NEVER OPEN HIS EYES UNLESS ASKED. ONLY C/O PAIN TWICE THIS SHIFT. LS CONTINUE TO BE DIMINISHED, DID HAVE TO PLACE HIM BACK ON 2L NC WHILE HE SLEPT. SINUS TO SINUS TACH WITH RATE 90-110'S. BP CONTINUES TO BE SOFT WITH MAP TRENDING AROUND 65 WITH LEVO BEING INCREASED TO 8MCQ. ABD CONTINUES TO BE ROUND FIRM, WITH DARK BROWNISH BLACK STOOL IN RECTAL TUBE, NOT EVEN ENOUGH TO MAKE IT IN THE BAG. H&H HAVE REMAINED STABLE. GOLDSTEIN CONTINUE TO BE TEA COLOR WITH DECREASE IN OUTPUT TO 350CC. BUN AND CREATINE CONTINUE TO INCREASE. NEW DISCOLORATION NOTED LEFT LATERAL MICHAEL AREA WITH REPOSITIONING EVERY 2 HOURS. PIC DONE AND PLACED IN CHART. TMAX 99.9. WILL REPORT TO [facility]. CALL LIGHT REMAINS IN REACH.
--- NOTE | 2022-02-13 07:30 | NUR ---
PT IS SOMULENT THIS AM. HE OPENS HIS EYES AND FOLLOWS SOME COMMANDS, BUT FALLS BACK TO SLEEP IF NOT STIMULATED. PT REMAINS DISORIENTED. PT DENIES PAIN AT THIS TIME. PT COTTON, BUT GENERALLY WEAKER TODAY. ECG SHOWS SR TO ST 90-110'S. MAP TRENDING 50'S-LEVOPHED TITRATED UP TO 10 MCG/MIN. LOWER EXTREMITIES MOTTLED. RIGHT DP PULSE ABSENT- OTHER PULSES PER DOOPPLER. RIGHT LOWER EXTREMITY WITH LARGE NONBLANCHABLE AREA THAT WAS NOT PRESENT YESTERDAY. THE AREA HAS BEEN DEMARCATED. THE GREAT TOE AND SECOND TOE OF THE LEFT FOOT ARE PURPLE AND COOL TO TOUCH.LUNGS COARSE TO UPPER LOBES AND DIMINISHED IN THE BASES L>R. SATS>90% ON 2 LITERS NASAL CANULA. OCCASIONAL MOIST, NONPRODUCTIVE COUGH NOTED. PT NPO HE IS AT HIGH RISK FOR ASPIRATION AND DECREASED LOC. RECTAL TUBE WITH SMALL AMOUNT OF BROWN, LIQUID STOOL. GOLDSTEIN WITH 30 CC TEA COLORED URINE TO UROMETER. SKIN OVERALL IS PALE AND FRAIL. LOWER EXTREMITY WITH SCATTERED SCABS. RIGHT LOWERE EXTREMITY WITH SMALL AREA THAT HAS SCANT SERO/SANG DRAINAGE-CLEANSED AND COVERED WITH FOAM DRESSING. COCCYX REMAINS SLIGHTLY RED. CALAZIME APPLIED AND PT REPOSITIONED TO LEFT SIDE.
--- NOTE | 2022-02-13 08:25 | NUR ---
PT GRIMACING, MOANING, RESTLESS, AND AGITATED. MED WITH FENTANYL 25 MCG IVP X 1-SEE EMAR.
[2022-02-13 10:53] LABS: Hematocrit 28.1 % (37.0-53.0)
--- NOTE | 2022-02-13 11:30 | NUR ---
IN TO SEE PT. UPDATE GIVEN. 12 LEAD ECG DONE. PT REMAINS SOMULENT AND DID NOT AWAKEN TO VOICE. PT REPOSITIONED AND FACE WASHED WITH COLD WATER. PT AWAKENED AND ABLE TO TAKE MEDS WITH SIP OF WATER-ASPIRATION PRECAUTIONS CONTINUE. ECG SHOWS SR WITH RATE 90'S. MAP TRENDING >65 WITH LEVOPHED @ 10 MCG/MIN. LUNGS DIMINISHED THROUGH OUT. COUGH REMAINS NON-PRODUCTIVE. SATS>90% ON 2 LITERS NASAL CANULA. PT TO REMAINS NPO EXCEPT FOR SIPS OF WATER WITH MEDS HE IS STILL QUITE SOMULENT. GOLDSTEIN OUTPUT CONTINUES TO BE POOR. NO CHANGE IN THE DISCOLORATION TO THE RIGHT LOWER EXTREMITY OR THE PURPLE APPEARANCE TO THE TOES ON THE LEFT FOOT. RIGHT DP CONTINUES TO BE ABSENT.
--- NOTE | 2022-02-13 11:49 | NUR ---
1 UNIT PRBC'S INITIATED AFTER PROPER CHECKS AND ID.
--- NOTE | 2022-02-13 14:45 | NUR ---
PRBC'S COMPLETE. PT AWAKENED TO VOICE AND ABLE TO STATE HIS NAME AND . PT ABLE TO TAKE NEURONTIN WITH A SIP OF WATER. LUNGS DIMINISHED T/O WITH FINE CRACKLES TO BASES. PT REPORTS FEELING LIKE "I CAN'T CATCH MY BREATH!" RR 28 SATS>90% ON 2 LITERS NASAL CANULA. MAP TRENDING 70'S. URINE OUTPUT REMAINS POOR. DR. MOSS UPDATED. PT MED WITH LASIX 80 MG IVP X 1-SEE EMAR.
--- NOTE | 2022-02-13 16:30 | NUR ---
URINE OUPUT STILL POOR DESPITE LASIX [address] MOSS AWARE. BUMEX 4 MG IVP X 1 GIVEN-SEE EMAR. PT AWAKENS TO VOICE, BUT REMAINS CONFUSED. FOLLOWS COMMANDS AND COTTON, BUT VERY WEAK. PT CONTINUES TO STATE "I CAN'T BREATH." LUNGS REMAIN DIMINISHED THROUGH OUT WITH FINE CRACKLES BILATERALLY. RR 22-28. PT MAINTAINS SATS>90% ON 2 LITERS NASAL CANULA. ECG CONTINUES SR TO ST 90-110'S. MAP TRENDING 70'S WITH LEVOPHED @ 8 MCG/MIN. PT TOLERATING SIPS OF WATER WITHOUT DIFFICULTY. RECTAL TUBE CONTINUES TO DRAIN BROWN, LIQUID STOOL. SKIN REMAINS PALE AND LOWER EXTREMITIES MOTTLED. PT CONTINUES TO HAVE POOR PERFUSION/CIRCULATION.
--- NOTE | 2022-02-13 18:41 | NUR ---
100 CC URINE OUTPUT SINCE BUMEX GIVEN.
--- NOTE | 2022-02-13 20:00 | NUR ---
ASSUMED CARE. AOX2, EASILY RE-ORIENTED. STATES PAIN IS "OK" TILL HE IS MOVED THEN HE HURTS. LS DIMINISHED BUT COUGH HAS BECOME MOIST, NON-PRODUCTIVE, OCCATIONALLY CAN HEAR SOME FINE CRACKLES BUT CLEARS WHEN HE COUGHS. HR SINUS WITH RATE IN THE 90'S. ABDOMIN DISTENDED TENDER WHEN PALPATED. VERY LITTLE STOOL IN TUBING, BROWN IN COLOR. LITTLE TEA COLOR URINE IN CATHETER. LEVO ON 4MCQ AND NS TKO. BP HOLDING WITH MAP 60-70'S. REPOSITIONED, ORAL CARE PROVIDED, CATH CARE DONE. WILL CONTINUE TO MONITOR.
[2022-02-14 04:18] LABS: Hematocrit 30.3 % (37.0-53.0); Hemoglobin 8.6 g/dL (13.5-17.5); Mean Corpuscular HGB 19.6 pg (26.0-34.0); Mean Corpuscular HGB Conc 28.4 g/dL (31.5-36.5); Mean Corpuscular Volume 69 fL (80-100); Mean Platelet Volume 9.2 fL (9.1-12.4); NRBC ABSOLUTE 0.22 K/mm3 (0.00-0.02); NRBC Auto 1.1 /100 WBC (0.0-0.2); Platelet Count 504 K/mm3 (150-400); RDW Standard Deviation 61.7 fL (35.1-46.3); Red Blood Cell Count 4.38 M/mm3 (4.30-5.90); White Blood Cell Count 20.51 K/mm3 (4.00-11.30)
[2022-02-14 04:39] LABS: Magnesium, Blood 3.4 mg/dL (1.6-2.4)
[2022-02-14 04:40] LABS: Albumin, Blood 1.5 g/dL (3.4-5.0); Albumin/Globulin Ratio 0.4 (0.8-1.8); Bilirubin, Total 0.6 mg/dL (0.1-1.0); Bun/Creatinine Ratio 27.3 (12.0-20.0); Calcium, Blood 6.4 mg/dL (8.5-10.1); Creatinine, Blood 3.11 mg/dL (0.60-1.20); Globulin, Blood 3.7 g/dL (2.2-4.0); Total Protein, Blood 5.2 g/dL (6.4-8.2)
--- NOTE | 2022-02-14 05:41 | NUR ---
SHIFT SUMMARY: EMELY HAS BEEN AWAKE OFF AND ON THIS SHIFT AND ABLE TO MAKE NEEDS KNOWN. STILL HAS SOME CONFUSION THAT HE IS EASILY RE-ORIENTED. LS DIMINISHED WITH SOME CRACKLES THAT TENDS TO CLEAR WITH COUGH. COUGH IS MORE MOIST THAN PREVIOUS NIGHT. REMAINED ON 2L NC WITH GOOD SATURATION. SINUS ACCORDING TO THE MONITOR WITH RATE IN THE 90'S. BP HAS REMAINED SOFT WITH A MAP IN THE 70'S MOST OF SHIFT. LEVOPHED IS DOWN TO 3MCQ. PAIN HAS BEEN MINIMAL, MEDICATED ONCE WIHT NORCO AND ONCE WITH FENTANAYL. ABD FIRM AND TENDER, RECTAL TUBE 150CC OF BROWN ODOROUS STOOL. DECREASE IN URINE OUTPUT-ONLY 150CC THIS SHIFT. KIDNEY FUNCTIONS CONTINUE TO WORSEN-SEE LABS. LIVER ENZYEMES CONTINUE TO INCREASE DUE TO SHOCK. SKIN HAS SEVERAL NON-HEALING WOUND AND IS AT HIGH RISK OF BREAKDOWN. PHOTOS ARE IN CHART. WILL REPORT TO DAYSHIFT. CALL LIGHT REMAINS IN REACH.
--- NOTE | 2022-02-14 08:44 | NUR ---
ASSUMED CARE BEDSIDE REPORT FROM HEDY GARCES AT 0700. PT RESTING IN BED. WAKES c VERBAL STIMULI. A&OX3. FOLLOWS SIMPLE COMMANDS. DENIES PAIN OR OTHER SYMPTOMS. LUNGS DIM IN BASES, ON RA. SR ON MONITOR, RATE 90'S. BP STABLE. LEVO PLACED ON STANDBY. MAP>65. PT DENIES CHEST PAIN. ABD DISTENDED, NON TENDER. BT X 4. PT STATES DISTENTION NORMAL FOR HIM. GOLDSTEIN PATENT, DRAINING CLEAR GIANCARLO URINE TO GRAVITY. RIGHT FOOT DUSKY, NO DP PULSE BY DOPPLER, OTHER PP BY DOPPLER. SKIN c MULTIPLE ULCER, BRUISING AND ABRASIONS, SEE SKIN ASSESSMENT. PICC TO LUIS, DRESSING C/D/I. WILL CONTINUE TO MONITOR.
[2022-02-14 16:46] LABS: Calcium, Blood 6.9 mg/dL (8.5-10.1); Creatinine, Blood 3.83 mg/dL (0.60-1.20); Potassium, Blood 5.2 mmol/L (3.5-5.5)
--- NOTE | 2022-02-14 17:46 | NUR ---
SHIFT SUMMARY PT SLEPT MOST OF SHIFT. WAKES c VERBAL STIMULI. ORIENT X 3. FOLLOWS SIMPLE COMMANDS. C/O PAIN TO "WHOLE BODY" EARLIER THIS SHIFT. DENIES PAIN AT THIS TIME. LEVO PLACED ON STANDBY THIS AM, FLUID CHALLENGED c 1L LR AFTER MINIMAL OUTPUT p BUMEX c NO RESULTS. LEVO RESTARTED FOR MAP>65. 40 ML URINE OUT. NEPHRO CONSULTED. PT PALE, DUSKY FEET, WORSE ON RIGHT. DELAYED CAP REFILL. TPN STARTED THIS SHIFT. PICC OUT 15 CM, VERIFIED PLACEMENT BY XRAY. PLAN FOR DIALYSIS TOMORROW. WILL CONTINUE TO MONITOR UNTIL REPORT TO ONCOMING NURSE.
[2022-02-14 18:47] LABS: Hematocrit 30.3 % (37.0-53.0); Hemoglobin 8.5 g/dL (13.5-17.5)
--- NOTE | 2022-02-14 19:56 | NUR ---
ASSUMED CARE BEDSIDE REPORT FROM TASHI GARCES. PT RESPONDS TO VERBAL STIMULI AND IS ALERT AND ORIENTED X3. PT'S SPEECH IS GARBLED, BUT RESPONDS APPROPRIATELY TO QUESTIONS. PT DENIES CP. CLEAR LUNG SOUNDS WITH SPO2 >92% ON RA. HR AND BP STABLE WITH MAP >65 ON 3MCG OF LEVO. TPN INFUSING PER ORDER. GOLDSTEIN IN PLACE AND DRAINING DARK GIANCARLO URINE TO GRAVITY. RECTAL TUBE IN PLACE WITH MODERATE AMOUNTS OF BROWN LIQUID STOOL. PT HAS WOUNDS THROUGHOUT BLE WITH BOTH FEET LOOKING MOTTLED. BOTH PEDAL PULSES PALPATED. PICC RUE.
--- NOTE | 2022-02-14 22:03 | NUR ---
UPDATE PT LEVOPHED TITRATED FROM 3 TO 2, THEN BACK UP TO 3 D/T NON TOLERANCE OF TITRATION.
[2022-02-15 03:46] LABS: Hematocrit 31.1 % (37.0-53.0); Hemoglobin 8.5 g/dL (13.5-17.5); Mean Corpuscular HGB 19.8 pg (26.0-34.0); Mean Corpuscular HGB Conc 27.3 g/dL (31.5-36.5); Mean Corpuscular Volume 73 fL (80-100); Mean Platelet Volume 9.3 fL (9.1-12.4); NRBC ABSOLUTE 1.23 K/mm3 (0.00-0.02); NRBC Auto 6.3 /100 WBC (0.0-0.2); Platelet Count 461 K/mm3 (150-400); RDW Coefficient Variation 27.9 % (11.7-14.2); RDW Standard Deviation 69.9 fL (35.1-46.3); Red Blood Cell Count 4.29 M/mm3 (4.30-5.90); White Blood Cell Count 19.43 K/mm3 (4.00-11.30)
[2022-02-15 04:06] LABS: Magnesium, Blood 3.7 mg/dL (1.6-2.4)
[2022-02-15 04:08] LABS: Base Excess Venous -16.4 mmol/L; Bicarbonate Venous 12.5 mmol/L (24.0-30.0); PCO2 Venous 40.2 mmHg (38-42)
[2022-02-15 04:09] LABS: pH Blood Venous 7.12 (7.34-7.37)
[2022-02-15 04:18] LABS: Alanine Aminotransfer (ALT/SGP 239 U/L (12-78); Albumin, Blood 1.4 g/dL (3.4-5.0); Albumin/Globulin Ratio 0.3 (0.8-1.8); Alk Phos 282 U/L (50-136); Anion Gap 11 mmol/L (6-16); Aspartate Aminotrans (AST/SGOT 1414 U/L (12-37); Bilirubin, Total 0.5 mg/dL (0.1-1.0); Blood Urea Nitrogen 99 mg/dL (8-24); Bun/Creatinine Ratio 22.7 (12.0-20.0); CO2, Blood 18 mmol/L (21-32); Calcium, Blood 6.2 mg/dL (8.5-10.1); Chloride, Blood 101 mmol/L (98-108); Creatinine, Blood 4.37 mg/dL (0.60-1.20); Globulin, Blood 4.1 g/dL (2.2-4.0); Glomerular Filtration Rate 14 (60-); Glucose, Blood 262 mg/dL (70-99); Phosphorus, Blood 8.4 mg/dL (2.5-4.9); Potassium, Blood 6.1 mmol/L (3.5-5.5); Sodium, Blood 130 mmol/L (136-145); Total Protein, Blood 5.5 g/dL (6.4-8.2); Triglycerides 348 mg/dL (30-160)
--- NOTE | 2022-02-15 05:42 | NUR ---
SHIFT SUMMARY AT 0250 MAP COLORER SHOWING PACED RHYTHM AT 47. PT UNRESPONSIVE THEN WENT INTO [facility] AND CODE WAS CALLED; SEE CODE SHEET. PT NOW INTUBATED ON 30 MCG OF LEVO, 1MCG EPI, 0.04 OF VASOPRESSIN. SPO2 >92% ON VENTILATOR AT [facility] 14/480/5/50%. DR MOSS NOTIFIED DR PRAJAPATI ARRIVED AT BEDSIDE DURING CODE. PLAN TO CALL CAREGIVER/FRIEND THIS MORNING. OG IN PLACE WITH DIFFICULT PLACEMENT. DRAINING SMALL AMOUNT OF BLOOD TINGED BILE/MUCUS. RECTAL TUBE CONTINUES TO DRAIN TO GRAVITY. VERY MINIMAL URINE OUTPUT FROM GOLDSTEIN.
--- NOTE | 2022-02-15 07:33 | NUR ---
PATIENTS FRIEND / CAREGIVER, MAXIMINO, NOTIFIED OF CHANGE IN CONDITION AND GIVEN UP DATE ON EVENTS OF THIS MORNING. MAXIMINO VERBALIZED THAT THERE IS NO OTHER FAMILY THAT MIGHT BE NOTIFIED.
--- NOTE | 2022-02-15 12:15 | NUR ---
REASSESSMENT PT REMAINS INTUBATED WITHOUT ANY SEDATION. HE HAS BEEN UNRESPONSIVE. HIS L PUPIL HAS A SLUGGISH RESPONSE TO LIGHT AND HE DOES BREATHE OVER THE VENT. NO GAG OR COUGH. LUNGS CLEAR. PT'S HR DROPPED SUDDENLY FROM THE 70S AND 80S TO 60 ABOUT 1130 THIS MORNING. PT'S BP DROPPED SUDDENLY AT THAT TIME ALONG WITH HIS SPO2. EPI AND LEVOPHED TITRATED UP TO SUPPORT BP AND FIO2 TURNED UP TO 75% TO GET SPO2 ABOVE 90%. PT MAINTAINED A PALPABLE RADIAL PULSE DURING THIS. PT'S FRIEND MAXIMINO WAS AT THE BEDSIDE DURING THIS. HE EXPRESSED THAT PT WOULDN'T WANT TO CONTINUE LIKE THIS AND THAT PT IN THE PAST HAS SAID HE WOULDN'T EVERY WANT TO BE BEDRIDDEN OR IN A INTERMEDIATE. MAXIMINO HAD A DISCUSSION WITH DR. HAN AND PALLIATIVE CARE. MAXIMINO EXPRESSED THAT HE BELIEVES MAXIMINO WOULD WANT TO MOVE TO COMFORT CARE. SUPPORT PROVIDED TO MAXIMINO FROM BILINGUAL OFFICE ASSISTANT, PALLAITIVE CAR AND NURSING. WAITING FOR ORDERS TO PROCESS THEN WILL PROCEED WITH TRANSITIONING PT TO COMFORT.
--- NOTE | 2022-02-15 13:16 | NUR ---
EXTUBATE PT MEDICATED WITH MORPHINE FOR COMFORT PRIOR TO EXTUBATION. RT EXTUBATED PT AT 1257 AND ALL PRESSORS STOPPED AT THE SAME TIME. DIRECTOR MOBILE PRESENT AT BEDSIDE. PT HAD VERY LITTLE RESPIRATORY EFFORT. DECLARED AT 1305. ATTEMPTED TO TURN PACER OFF WITH MAGNET, BUT PACER STILL FIRING. NO PULSE AUSCULTATED, NO PUPILLARY REFLEXES PRESENT. PT'S FRIEND/CG MAXIMINO NOTIFIED.
--- NOTE | 2022-02-15 14:04 | NUR ---
Spiritual care visit conducted. Pt is lying in bed and minimally responsive. Pt's friend Eben is bedside. Eben tells me about pt's medical history, about his role as a neurocritical care physician for the pt and a little about pt's personality. I explore pt's spiritual beliefs (Protestant), Eben's support system and Eben's preference for a home ([facility] was chosen). I provided prayer and a calming presence. After Eben left, I returned for the extubation. At TOD I provided further prayer and a moment of silence to honor the work of the staff and the life of the pt.
--- NOTE | 2022-02-15 14:14 | NUR ---
pt on ventilator unresponsive no gag grossly abnormal pupils. This typewriter tester has met with this patient on previous admissions. He has been estranged from his family for many years. He has a relationship with his friend Eben who is also his caregiver. Went through pt phone for other contacts and called his physicians to see if he listed a contact. He did not list anyone. Called Eben he states he heard from his son a few years ago he needed money. Eben thinks they did a poa when they did banking set up. Eben came in and spoke with intsivist and discussed grim prognosis. Decision made to withdraw care. Pt taken off vent and pressors and passed quickly. Eben notified. They chose [facility] home. Eben took pt phone home. ONly belongings left were some older soiled clothing.
--- NOTE | 2022-02-15 15:44 | NUR ---
Pt's body picked up by Jos from [employer]. Eben, pt's friend and caregiver took pt's belongings when he left this morning.
== END 2022-02-15 13:05 ==
LOC: ER 09:56 → PCU 09:57 → ICUW 02-09 20:55 → PCU 02-09 20:55 → ICUW 02-10 20:29
PROVIDERS: Family Medicine; Internal Medicine; Internal Medicine Cardiovascular Disease; Internal Medicine Critical Care Medicine; Student in an Organized Health Care Education/Training Program; ADMIT Internal Medicine
PROC: 5A12012 Performance of Cardiac Output, Single, Manual (ICD-10-PCS; 2022-02-08)
PROC: 3E033XZ Introduction of Vasopressor into Peripheral Vein, Percutaneous Approach (ICD-10-PCS; 2022-02-11)
PROC: 30233N1 Transfusion of Nonautologous Red Blood Cells into Peripheral Vein, Percutaneous Approach (ICD-10-PCS; principal; 2022-02-13)
PROC: 02HV33Z Insertion of Infusion Device into Superior Vena Cava, Percutaneous Approach (ICD-10-PCS; 2022-02-13)
PROC: 3E03329 Introduction of Other Anti-infective into Peripheral Vein, Percutaneous Approach (ICD-10-PCS; 2022-02-13)
PROC: 3E0336Z Introduction of Nutritional Substance into Peripheral Vein, Percutaneous Approach (ICD-10-PCS; 2022-02-13)
PROC: 0BH18EZ Insertion of Endotracheal Airway into Trachea, Via Natural or Artificial Opening Endoscopic (ICD-10-PCS; 2022-02-15)
PROC: 5A1935Z Respiratory Ventilation, Less than 24 Consecutive Hours (ICD-10-PCS; 2022-02-15)
DX: I47.2 Ventricular tachycardia (principal); I21.A1 Myocardial infarction type 2; A41.51 Sepsis due to Escherichia coli [E. coli]; J69.0 Pneumonitis due to inhalation of food and vomit; R65.21 Severe sepsis with septic shock; J96.01 Acute respiratory failure with hypoxia; N17.0 Acute kidney failure with tubular necrosis; R40.20 Unspecified coma; K55.9 Vascular disorder of intestine, unspecified; I50.22 Chronic systolic (congestive) heart failure; E87.4 Mixed disorder of acid-base balance; K92.2 Gastrointestinal hemorrhage, unspecified; G93.1 Anoxic brain damage, not elsewhere classified; I48.0 Paroxysmal atrial fibrillation; I73.9 Peripheral vascular disease, unspecified; I25.10 Atherosclerotic heart disease of native coronary artery without angina pectoris; J44.9 Chronic obstructive pulmonary disease, unspecified; I10 Essential (primary) hypertension; D50.9 Iron deficiency anemia, unspecified; Z95.810 Presence of automatic (implantable) cardiac defibrillator; Z95.5 Presence of coronary angioplasty implant and graft; E78.5 Hyperlipidemia, unspecified; I25.5 Ischemic cardiomyopathy; I25.2 Old myocardial infarction; Z79.82 Long term (current) use of aspirin; Z79.899 Other long term (current) drug therapy; I71.4 Abdominal aortic aneurysm, without rupture; I46.2 Cardiac arrest due to underlying cardiac condition; Z79.02 Long term (current) use of antithrombotics/antiplatelets; F17.210 Nicotine dependence, cigarettes, uncomplicated; I49.3 Ventricular premature depolarization; G89.29 Other chronic pain; M25.552 Pain in left hip; M25.551 Pain in right hip; Z79.01 Long term (current) use of anticoagulants; T46.2X6A Underdosing of other antidysrhythmic drugs, initial encounter; Z91.14 Patient's other noncompliance with medication regimen
CPT/HCPCS: 31500; 36415; 36430; 36569; 36600; 51702; 71045; 71275; 74018; 74174; 74177; 80048; 80053; 80076; 81001; 82272; 82330; 82550; 82553; 82728; 82803; 82947; 83540; 83550; 83605; 83690; 83735; 83880; 84100; 84478; 84484; 85014; 85018; 85025; 85027; 85045; 85520; 85610; 85730; 86850; 86900; 86901; 86923; 87040; 87077; 87086; 87186; 87493; 92950; 93005; 93010; 93306; 94002; 94640; 94664; 94760; 94762; 96365; 96372; 96375; 96376; 98960; 99285-25; A9270; C1751; C9113; G0378; J0171; J0295; J0461; J0610; J1644; J1940; J2270; J2405; J2543; J2704; J2916; J3010; J3480; J7030; J7040; J7050; J7060; J7120; J7131; P9016; Q9967